=== PATIENT | male | born 1945 | race Caucasian/White ===

== ENCOUNTER 2018-09-13 11:32 | Emergency (ER) | payer OTHER ==
[2018-09-13] MEDS ORDERED: Sodium Chloride 0.9% 10 ML Syringe FLUSH PRN (12:10)
[2018-09-13] MEDS ORDERED: Sodium Chloride 0.9% 1,000 ML IV SCH ×2 (12:15→14:30)
--- NOTE | 2018-09-13 12:45 | EDM.PDOC ---
ED HPI GENERAL MEDICAL PROBLEM - General Chief Complaint: Fever Stated Complaint: running a temp over 100 Time Seen by Provider: 09/13/18 12:08 Source of Information: Reports: Patient, Family, RN Notes Reviewed () - History of Present Illness INITIAL COMMENTS - FREE TEXT/NARRATIVE: 73-year-old male is brought in by this morning for evaluation of fever, chills, possible sepsis. He has been on chemotherapy this past week. He was in the hospital 6 days [place] and just released yesterday after 6 days of IV and oral chemotherapy for what his describes as multiple brain tumors. Dates it is a type of "lymphoma? " He was fine yesterday but started running fever early this morning and did get up as high as 101.8. She did give him a dose of Tylenol after that higher fever about 5 hours ago. He has occasional nonproductive cough. He is mildly short of breath. No chest or abdominal pain. No nausea vomiting or diarrhea. He denies headache at this time. 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 Bilateral Feet Pain Score (Numeric/FACES): 7 - Related Data Allergies Allergy/AdvReac Type Severity Reaction Status Date / Time Benzodiazepines Allergy Confusion Verified 09/13/18 14:12 Home Meds: Home Meds Cholecalciferol (Vitamin D3) [Vitamin D3] 1,000 unit PO DAILY 04/05/18 [History] Multivitamin [Daily Will] 1 tab PO DAILY 04/05/18 [History] atorvaSTATin [Lipitor] 20 mg PO DAILY 04/05/18 [History] metFORMIN HCl [Metformin HCl ER] 750 mg PO DAILY 04/05/18 [History] Apixaban [Eliquis] 5 mg PO BID 09/13/18 [History] Gabapentin [Neurontin] 300 mg PO TID 09/13/18 [History] Procarbazine HCl 200 mg PO DAILY 09/13/18 [History] levETIRAcetam [Levetiracetam] 500 mg PO BID 09/13/18 [History] Past Medical History HEENT History: Reports: Cataract Cardiovascular History: Reports: High Cholesterol Respiratory History: Reports: None Gastrointestinal History: Reports: GERD (occasional heartburn) Genitourinary History: Reports: None Musculoskeletal History: Reports: Arthritis Psychiatric History: Reports: None Endocrine/Metabolic History: Reports: Diabetes, Type II Hematologic History: Reports: None Oncologic (Cancer) History: Reports: Brain, Lymphoma Dermatologic History: Reports: None - Past Surgical History Head Surgeries/Procedures: Reports: None HEENT Surgical History: Reports: Cataract Surgery, Tonsillectomy GI Surgical History: Reports: Colonoscopy Male Surgical History: Reports: None Neurological Surgical History: Reports: None Musculoskeletal Surgical History: Reports: None Dermatological Surgical History: Reports: None Social & Family History - Tobacco Use Smoking Status *Q: Former Smoker Used Tobacco, but Quit: Yes Month/Year Tobacco Last Used: 1989 - Caffeine Use Caffeine Use: Reports: Coffee - Recreational Drug Use Recreational Drug Use: No - Living Situation & Occupation Living situation: Reports: , with Spouse Occupation: Retired ED ROS GENERAL - Review of Systems Review Of Systems: See Below Constitutional: Reports: Fever, Chills. Denies: Diaphoresis HEENT: Denies: Rhinitis, Sinus Problem, Throat Pain Respiratory: Reports: Shortness of Breath (Mild) Cardiovascular: Denies: Chest Pain Endocrine: Reports: Fatigue GI/Abdominal: Denies: Abdominal Pain, Diarrhea, Nausea, Vomiting : Reports: No Symptoms Musculoskeletal: Reports: Other (Generalized achiness) Skin: Reports: Bruising (Lower abdomen) Neurological: Reports: Dizziness, Weakness (Generalized). Denies: Trouble Speaking ED EXAM, SEPSIS - Physical Exam Exam: See Below General Appearance: Alert, No Apparent Distress Eye Exam: Bilateral Eye: PERRL Throat/Mouth: Normal Inspection, Other Head: No: Facial Swelling (Oral mucosa is somewhat dry) Neck: Supple, Full Range of Motion Respiratory/Chest: No Respiratory Distress, Lungs Clear, Normal Breath Sounds. No: Rhonchi, Wheezing Cardiovascular: Tachycardia GI/Abdominal Exam: Soft, Non-Tender, Other (Is bruising the lower mid abdomen). No: Guarding Extremities: Other (Legs are currently wrapped, his states that he did have blisters on his legs from the chemotherapy so they were wrapped prior to leaving the hospital, do for a dressing change today) Neurological: Alert ( by home health), No Motor/Sensory Deficits Skin: Warm, Dry, Pallor EKG INTERPRETATION EKG Date: 09/13/18 Rhythm: Other (Sinus tachycardia) Rate (Beats/Min): 115 P-Wave: Present QRS: Normal ST-T: Normal Course - Vital Signs Last Recorded V/S: Last Vital Signs Temp 101 F H 09/13/18 11:46 Pulse 116 H 09/13/18 11:46 Resp 18 09/13/18 11:46 BP 107/65 09/13/18 11:46 Pulse Ox 94 L 09/13/18 11:46 - Orders/Labs/Meds Orders: Active Orders 24 hr Category Date Time Status EKG 12 Lead [EKG Documentation Completion] [RC] STAT Care 09/13/18 12:10 Active Peripheral IV Care [RC] . DIRECTED Care 09/13/18 12:11 Active CULTURE BLOOD [BC] Stat Lab 09/13/18 12:33 Received CULTURE BLOOD [BC] Stat Lab 09/13/18 12:57 Received Peripheral IV Insertion Adult [OM.PC] Stat Oth 09/13/18 12:10 Ordered Labs: Laboratory Tests 09/13/18 09/13/18 09/13/18 Range/Units 12:23 12:23 12:23 WBC 6.40 (4.23-9.07) K/mm3 RBC 3.08 L (4.63-6.08) M/mm3 Hgb 9.8 L (13.7-17.5) gm/L Hct 30.2 L (40.1-51.0) % MCV 98.1 H (79.0-92.2) fl MCH 31.8 (25.7-32.2) pg MCHC 32.5 (32.2-35.5) g/dl RDW Std Deviation 51.1 H (35.1-43.9) fL Plt Count 195 (163-337) K/mm3 MPV 10.1 (9.4-12.3) fl Neutrophils % (Manual) 94 H (40-60) % Band Neutrophils % 0 (0-10) % Lymphocytes % (Manual) 6 L (20-40) % Atypical Lymphs % 0 % Monocytes % (Manual) 0 L (2-10) % Eosinophils % (Manual) 0 L (0.8-7.0) % Basophils % (Manual) 0 L (0.2-1.2) Toxic Granulation Moderate Platelet Estimate Adequate Poikilocytosis 1+ slight Anisocytosis 2+ RBC Morph Comment Not Reportable Sodium 138 (136-145) mEq/L Potassium 3.7 (3.5-5.1) mEq/L Chloride 101 (98-107) mEq/L Carbon Dioxide 27 (21-32) mEq/L Anion Gap 13.7 (5-15) BUN 31 H (7-18) mg/dL Creatinine 1.3 (0.7-1.3) mg/dL Est Cr Clr Drug Dosing 51.36 mL/min Estimated GFR (MDRD) 54 (>60) mL/min BUN/Creatinine Ratio 23.8 H (14-18) Glucose 183 H (83-115) mg/dL Lactic Acid (0.4-2.0) mmol/L Calcium 8.6 (8.5-10.1) mg/dL Total Bilirubin 1.1 H (0.2-1.0) mg/dL AST 18 (15-37) U/L ALT 38 (16-63) U/L Alkaline Phosphatase 61 (46-116) U/L C-Reactive Protein 17.4 H* (<1.0) mg/dL Total Protein 5.4 L (6.4-8.2) g/dl Albumin 2.3 L (3.4-5.0) g/dl Globulin 3.1 gm/dL Albumin/Globulin Ratio 0.7 L (1-2) Urine Color (Yellow) Urine Appearance (Clear) Urine pH (5.0-8.0) Ur Specific [place] (1.005-1.030) Urine Protein (Negative) Urine Glucose (UA) (Negative) Urine Ketones (Negative) Urine Occult Blood (Negative) Urine Nitrite (Negative) Urine Bilirubin (Negative) Urine Urobilinogen (0.2-1.0) Ur Leukocyte Esterase (Negative) Urine RBC (0-5) /hpf Urine WBC (0-5) /hpf Ur Epithelial Cells (0-5) /hpf Urine Bacteria (FEW) /hpf Urine Mucus (FEW) /hpf 09/13/18 09/13/18 Range/Units 12:23 14:45 WBC (4.23-9.07) K/mm3 RBC (4.63-6.08) M/mm3 Hgb (13.7-17.5) gm/L Hct (40.1-51.0) % MCV (79.0-92.2) fl MCH (25.7-32.2) pg MCHC (32.2-35.5) g/dl RDW Std Deviation (35.1-43.9) fL Plt Count (163-337) K/mm3 MPV (9.4-12.3) fl Neutrophils % (Manual) (40-60) % Band Neutrophils % (0-10) % Lymphocytes % (Manual) (20-40) % Atypical Lymphs % % Monocytes % (Manual) (2-10) % Eosinophils % (Manual) (0.8-7.0) % Basophils % (Manual) (0.2-1.2) Toxic Granulation Platelet Estimate Poikilocytosis Anisocytosis RBC Morph Comment Sodium (136-145) mEq/L Potassium (3.5-5.1) mEq/L Chloride (98-107) mEq/L Carbon Dioxide (21-32) mEq/L Anion Gap (5-15) BUN (7-18) mg/dL Creatinine (0.7-1.3) mg/dL Est Cr Clr Drug Dosing mL/min Estimated GFR (MDRD) (>60) mL/min BUN/Creatinine Ratio (14-18) Glucose (83-115) mg/dL Lactic Acid 2.6 H (0.4-2.0) mmol/L Calcium (8.5-10.1) mg/dL Total Bilirubin (0.2-1.0) mg/dL AST (15-37) U/L ALT (16-63) U/L Alkaline Phosphatase (46-116) U/L C-Reactive Protein (<1.0) mg/dL Total Protein (6.4-8.2) g/dl Albumin (3.4-5.0) g/dl Globulin gm/dL Albumin/Globulin Ratio (1-2) Urine Color Yellow (Yellow) Urine Appearance Clear (Clear) Urine pH 7.0 (5.0-8.0) Ur Specific [place] 1.015 (1.005-1.030) Urine Protein Trace H (Negative) Urine Glucose (UA) Negative (Negative) Urine Ketones Negative (Negative) Urine Occult Blood Negative (Negative) Urine Nitrite Negative (Negative) Urine Bilirubin Negative (Negative) Urine Urobilinogen 1.0 (0.2-1.0) Ur Leukocyte Esterase Negative (Negative) Urine RBC 0-5 (0-5) /hpf Urine WBC 0-5 (0-5) /hpf Ur Epithelial Cells Not seen (0-5) /hpf Urine Bacteria Occasional (FEW) /hpf Urine Mucus Not seen (FEW) /hpf Meds: Medications Discontinued Medications Generic Name Dose Route Start Last Admin Trade Name Freq PRN Reason Stop Dose Admin Sodium Chloride 1,000 mls @ 999 mls/hr 09/13/18 12:15 09/13/18 12:40 Normal Saline IV 999 mls/hr ONETIME MILAD Administration Piperacillin Sod/Tazobactam 100 mls @ 25 mls/hr 09/13/18 12:50 09/13/18 13:03 Sod 4.5 gm/ Sodium Chloride IV 09/13/18 16:49 25 mls/hr ONETIME ONE Administration Sodium Chloride Confirm 09/13/18 14:25 09/13/18 14:32 Normal Saline Administered 09/13/18 14:26 Not Given Dose 1,000 mls @ as directed .ROUTE .STK-MED ONE Sodium Chloride 1,000 mls @ 150 mls/hr 09/13/18 14:30 09/13/18 14:34 Normal Saline IV 150 mls/hr ASDIRECTED MILAD Administration Sodium Chloride 10 ml 09/13/18 12:10 09/13/18 12:41 Saline Flush FLUSH 10 ml ASDIRECTED PRN Administration Keep Vein Open - Re-Assessments/Exams Free Text/Narrative Re-Assessment/Exam: 09/13/18 13:45. WBC 6,400. Lactic acid 2.6. Still awaiting differential and remainder of other labs. We are on full diversion for admissions. Have made arrangements to transfer to [facility]. Blood cultures times 2 were drawn. Have given Zosyn 4.5 g IV. We did also give 1 L of fluid. We'll continue normal saline at 150 per hour. Rest x-ray shows some haziness in possible infiltrate right perihilar area but he also does have findings on prior chest x-ray, awaiting radiologist read. Departure - Departure Time of Disposition: 13:33 Disposition: DC/Tfer to Acute Hospital 02 Condition: Serious Clinical Impression: Febrile illness Pneumonia Qualifiers: Pneumonia type: due to unspecified organism Laterality: right Lung location: lower lobe of lung Qualified Code(s): J18.1 - Lobar pneumonia, unspecified organism - Discharge Information Referrals: Kathy Olivia MD [Primary Care Provider] - Forms: ED Department Discharge - My Orders Last 24 Hours: My Active Orders 09/13/18 12:10 EKG 12 Lead [EKG Documentation Completion] [RC] STAT Peripheral IV Insertion Adult [OM.PC] Stat 09/13/18 12:11 Peripheral IV Care [RC] . DIRECTED 09/13/18 12:33 CULTURE BLOOD [BC] Stat 09/13/18 12:57 CULTURE BLOOD [BC] Stat - Assessment/Plan Last 24 Hours: My Active Orders 09/13/18 12:10 EKG 12 Lead [EKG Documentation Completion] [RC] STAT Peripheral IV Insertion Adult [OM.PC] Stat 09/13/18 12:11 Peripheral IV Care [RC] . DIRECTED 09/13/18 12:33 CULTURE BLOOD [BC] Stat 09/13/18 12:57 CULTURE BLOOD [BC] Stat
[2018-09-13] MEDS ORDERED: Piperacillin/Tazobactam 4.5 GM in Sodium Chloride 0.9% 100 ML IV ONE (12:50)
--- NOTE | 2018-09-13 13:06 | CR ---
Chest: Portable view of the chest was obtained. Comparison: Prior chest x-ray of 07/21/18. Increased density is noted within the right lung base. Findings are suspicious for an area of pneumonia. Lungs otherwise are clear. Heart size appears at the upper limits of normal. Tortuous thoracic aorta is seen. Infusion port is noted on the left side with tip located within the superior vena cava. Impression: 1. Increased density within the right lung base most likely representing pneumonia. 2. Other incidental findings. Diagnostic code #3
[2018-09-13] MEDS ORDERED: Sodium Chloride 0.9% 1,000 ML ONE (14:25)
== END 2018-09-13 15:01 ==
LOC: JD.ED 11:32
DX: J18.1 Lobar pneumonia, unspecified organism (principal); E11.9 Type 2 diabetes mellitus without complications; K21.9 Gastro-esophageal reflux disease without esophagitis; E78.00 Pure hypercholesterolemia, unspecified; Z79.899 Other long term (current) drug therapy; Z87.891 Personal history of nicotine dependence; Z79.84 Long term (current) use of oral hypoglycemic drugs; Z88.8 Allergy status to other drugs, medicaments and biological substances
CPT/HCPCS: 36415; 71045; 80053; 81001; 83605; 85007; 85027; 86140; 87040; 87804; 93005; 96365; 96366; 99285; J2543; J7030; J7040; 93010

== ENCOUNTER 2019-09-09 16:49 | Inpatient (IN) | payer MEDICARE, OTHER ==
--- NOTE | 2019-09-09 17:25 | EDM.PDOC ---
ED HPI GENERAL MEDICAL PROBLEM - General Chief Complaint: Cardiovascular Problem Stated Complaint: FLUID IN LUNGS SENT BY [facility] Time Seen by Provider: 09/09/19 16:59 Source of Information: Reports: Patient, [facility] V[facility] NP), RN Notes Reviewed History Limitations: Reports: No Limitations - History of Present Illness INITIAL COMMENTS - FREE TEXT/NARRATIVE: Patient is a 74-year-old male who presents to the ED for the evaluation of ongoing shortness of breath/fluid in his lungs. The patient was evaluated by his primary care provider at the [facility], Char Viera over the phone, and was told to come to the ER for further management. Patient did have a chest x- ray done on August 30, which showed some pleural effusions, and had a chest x- ray done at [facility] again today which again demonstrated pleural effusions, but these were not worse from 08/30. Patient notes that he is having increasing difficulty breathing, states that the shortness of breath is much worse when he lays flat he has been having to use his recliner to sleep. Patient notes that he does have a semi-productive cough, he states at times he gets lots of moody-colored sputum up, other times he does not get much up at all. He recounts only a history of hayfever or allergies, but no COPD or asthma. Patient states he does have a history of Hodgkin's lymphoma, but this is currently in remission. His brain MRI in July was good. His oncologist is Dr. Vasquez from [facility]. Patient states that he does not have any fevers or chills, no nausea/vomiting/diarrhea, no chest pain per se however he does say when he sleeps at night it is bothersome/mildly painful to lay on his right side at the lower end of his rib cage. Patient denies any other cardiac issues. States that he takes metformin and atorvastatin, and Keppra on a regular basis with some other multivitamins. He is not on any blood thinners. - Related Data Allergies Allergy/AdvReac Type Severity Reaction Status Date / Time Benzodiazepines Allergy Confusion Verified 09/13/18 14:12 Home Meds: Home Meds Cholecalciferol (Vitamin D3) [Vitamin D3] 1,000 unit PO DAILY 04/05/18 [History] Multivitamin [Daily Will] 1 tab PO DAILY 04/05/18 [History] atorvaSTATin [Lipitor] 20 mg PO DAILY 04/05/18 [History] metFORMIN HCl [Metformin HCl ER] 750 mg PO DAILY 04/05/18 [History] levETIRAcetam [Levetiracetam] 500 mg PO BID 09/13/18 [History] Past Medical History HEENT History: Reports: Cataract Cardiovascular History: Reports: High Cholesterol Gastrointestinal History: Reports: GERD Musculoskeletal History: Reports: Arthritis Neurological History: Reports: Other (See Below) Other Neuro History: brain tumors Endocrine/Metabolic History: Reports: Diabetes, Type II Oncologic (Cancer) History: Reports: Brain, Lymphoma (hodgkin's lymphoma, in remission with good brain MRI 07/2019) - Past Surgical History HEENT Surgical History: Reports: Cataract Surgery, Tonsillectomy GI Surgical History: Reports: Colonoscopy Social & Family History - Tobacco Use Smoking Status *Q: Former Smoker Used Tobacco, but Quit: Yes Month/Year Tobacco Last Used: 35 - Caffeine Use Caffeine Use: Reports: Coffee - Recreational Drug Use Recreational Drug Use: No - Living Situation & Occupation Living situation: Reports: , with Spouse Occupation: Retired ED ROS GENERAL - Review of Systems Review Of Systems: See Below Constitutional: Denies: Fever, Chills Respiratory: Reports: Shortness of Breath (increasing), Cough, Sputum (at times , see HPI) Cardiovascular: Reports: Blood Pressure Problem (has been having some lower blood pressure readings, notes 106/64 last week, second BP here was 92/58) , Edema (bilateral lower extremities), Orthopnea. Denies: Chest Pain GI/Abdominal: Denies: Abdominal Pain, Nausea, Vomiting ED EXAM, GENERAL - Physical Exam Exam: See Below Exam Limited By: Other General Appearance: Alert, WD/WN Eye Exam: Bilateral Eye: EOMI, Normal Inspection, PERRL Ears: Normal External Exam Nose: Normal Inspection Throat/Mouth: Normal Inspection, Normal Lips, Normal Teeth, Normal Gums, Normal Oropharynx, Normal Voice, No Airway Compromise Head: Atraumatic, Normocephalic Neck: Normal Inspection Respiratory/Chest: No Respiratory Distress (pt does seem to be taking heavier breaths than normal but not actively in distress), No Accessory Muscle Use, Chest Non-Tender, Wheezing (mild wheezing, end expiratory on R Lung) Cardiovascular: Normal Peripheral Pulses, Tachycardia (but regular), Other (3+ pitting edema to bilateral extremities) Peripheral Pulses: 2+: Radial (L), Radial (R) GI/Abdominal: Normal Bowel Sounds, Soft, Non-Tender, No Distention, No Mass Extremities: Normal Inspection, Normal Capillary Refill Neurological: Alert, Oriented, Normal Cognition, No Motor/Sensory Deficits Psychiatric: Normal Affect, Normal Mood Skin Exam: Warm, Dry, Intact, Normal Color, No Rash EKG INTERPRETATION EKG Date: 09/09/19 Time: 17:35 Rhythm: NSR (sinus tachy) Rate (Beats/Min): 113 [place]: RAD-Right [place] Deviation (borderline) P-Wave: Present QRS: Normal ST-T: Normal QT: Prolonged (borderline) EKG Interpretation Comments: No acute ischemic change noted, reviewed by myself and Dr. Viera. Course - Vital Signs Last Recorded V/S: Last Vital Signs Temp 100.0 F 09/09/19 21:03 Pulse 115 H 09/09/19 21:03 Resp 28 H 09/09/19 21:03 BP 106/62 09/09/19 21:03 Pulse Ox 93 L 09/09/19 21:03 - Orders/Labs/Meds Orders: Active Orders 24 hr Category Date Time Status Admission Status [Patient Status] [ADT] Routine ADT 09/09/19 20:44 Ordered EKG Documentation Completion [RC] STAT Care 09/09/19 17:18 Active Peripheral IV Care [RC] . DIRECTED Care 09/09/19 17:18 Active Chest 2V [CR] Stat Exams 09/09/19 17:18 Taken CULTURE BLOOD [BC] Stat Lab 09/09/19 19:29 Received CULTURE BLOOD [BC] Stat Lab 09/09/19 19:35 Received REFLEX LACTIC ACID YES OR NO [CHEM] Routine Lab 09/09/19 20:33 Received Sodium Chloride 0.9% [Normal Saline] 1,000 ml Med 09/09/19 17:26 Active IV ONETIME Sodium Chloride 0.9% [Normal Saline] 1,000 ml Med 09/09/19 20:45 Active IV ONETIME Sodium Chloride 0.9% [Saline Flush] Med 09/09/19 17:18 Active 10 ml FLUSH ASDIRECTED PRN Blood Culture x2 Reflex Set [OM.PC] Stat Oth 09/09/19 19:11 Ordered Peripheral IV Insertion Adult [OM.PC] Stat Oth 09/09/19 17:18 Ordered Medication Orders Sodium Chloride (Normal Saline) 1,000 mls @ 100 mls/hr IV ONETIME ONE Stop: 09/10/19 03:25 Last Admin: 09/09/19 18:24 Dose: 100 mls/hr Sodium Chloride (Normal Saline) 1,000 mls @ 100 mls/hr IV ONETIME ONE Stop: 09/10/19 06:44 Last Admin: 09/09/19 20:51 Dose: 100 mls/hr Sodium Chloride (Saline Flush) 10 ml FLUSH ASDIRECTED PRN PRN Reason: Keep Vein Open Last Admin: 09/09/19 19:44 Dose: 10 ml Admin: 09/09/19 17:45 Dose: 10 ml Labs: Laboratory Tests 09/09/19 09/09/19 09/09/19 Range/Units 17:45 17:45 17:45 WBC 12.55 H (4.23-9.07) K/mm3 RBC 4.70 (4.63-6.08) M/mm3 Hgb 11.2 L (13.7-17.5) gm/dl Hct 37.3 L (40.1-51.0) % MCV 79.4 D (79.0-92.2) fl MCH 23.8 L (25.7-32.2) pg MCHC 30.0 L (32.2-35.5) g/dl RDW Std Deviation 50.3 H (35.1-43.9) fL Plt Count 338 H D (163-337) K/mm3 MPV 9.3 L (9.4-12.3) fl Neutrophils % (Manual) 74 H (40-60) % Band Neutrophils % 0 (0-10) % Lymphocytes % (Manual) 8 L (20-40) % Atypical Lymphs % 0 % Monocytes % (Manual) 9 (2-10) % Eosinophils % (Manual) 6 (0.8-7.0) % Basophils % (Manual) 3 H (0.2-1.2) Platelet Estimate Adequate Hypochromasia Few Poikilocytosis 1+ slight Anisocytosis 1+ slight Ovalocytes 1+ slight [place] Cells Few RBC Morph Comment Not Reportable PT 11.6 (9.7-12.0) SECONDS INR 1.07 APTT 29 (22-31) SECONDS Sodium 144 (136-145) mEq/L Potassium 4.2 (3.5-5.1) mEq/L Chloride 106 (98-107) mEq/L Carbon Dioxide 27 (21-32) mEq/L Anion Gap 15.2 H (5-15) BUN 12 (7-18) mg/dL Creatinine 0.8 (0.7-1.3) mg/dL Est Cr Clr Drug Dosing 79.56 mL/min Estimated GFR (MDRD) > 60 (>60) mL/min BUN/Creatinine Ratio 15.0 (14-18) Glucose 114 (83-115) mg/dL Lactic Acid (0.4-2.0) mmol/L Calcium 8.8 (8.5-10.1) mg/dL Magnesium 1.9 (1.8-2.4) mg/dl Total Bilirubin 0.4 (0.2-1.0) mg/dL AST 14 L (15-37) U/L ALT 15 L (16-63) U/L Alkaline Phosphatase 155 H (46-116) U/L Troponin I < 0.017 (0.00-0.056) ng/mL C-Reactive Protein (<1.0) mg/dL NT-Pro-B Natriuret Pep (0-125) pg/mL Total Protein 5.7 L (6.4-8.2) g/dl Albumin 2.3 L (3.4-5.0) g/dl Globulin 3.4 gm/dL Albumin/Globulin Ratio 0.7 L (1-2) 09/09/19 09/09/19 09/09/19 Range/Units 17:45 17:45 19:29 WBC (4.23-9.07) K/mm3 RBC (4.63-6.08) M/mm3 Hgb (13.7-17.5) gm/dl Hct (40.1-51.0) % MCV (79.0-92.2) fl MCH (25.7-32.2) pg MCHC (32.2-35.5) g/dl RDW Std Deviation (35.1-43.9) fL Plt Count (163-337) K/mm3 MPV (9.4-12.3) fl Neutrophils % (Manual) (40-60) % Band Neutrophils % (0-10) % Lymphocytes % (Manual) (20-40) % Atypical Lymphs % % Monocytes % (Manual) (2-10) % Eosinophils % (Manual) (0.8-7.0) % Basophils % (Manual) (0.2-1.2) Platelet Estimate Hypochromasia Poikilocytosis Anisocytosis Ovalocytes [place] Cells RBC Morph Comment PT (9.7-12.0) SECONDS INR APTT (22-31) SECONDS Sodium (136-145) mEq/L Potassium (3.5-5.1) mEq/L Chloride (98-107) mEq/L Carbon Dioxide (21-32) mEq/L Anion Gap (5-15) BUN (7-18) mg/dL Creatinine (0.7-1.3) mg/dL Est Cr Clr Drug Dosing mL/min Estimated GFR (MDRD) (>60) mL/min BUN/Creatinine Ratio (14-18) Glucose (83-115) mg/dL Lactic Acid 2.2 H* (0.4-2.0) mmol/L Calcium (8.5-10.1) mg/dL Magnesium (1.8-2.4) mg/dl Total Bilirubin (0.2-1.0) mg/dL AST (15-37) U/L ALT (16-63) U/L Alkaline Phosphatase (46-116) U/L Troponin I (0.00-0.056) ng/mL C-Reactive Protein 19.8 H* (<1.0) mg/dL NT-Pro-B Natriuret Pep 546 H (0-125) pg/mL Total Protein (6.4-8.2) g/dl Albumin (3.4-5.0) g/dl Globulin gm/dL Albumin/Globulin Ratio (1-2) Meds: Medications Generic Name Dose Route Start Last Admin Trade Name Freq PRN Reason Stop Dose Admin Sodium Chloride 1,000 mls @ 100 mls/hr 09/09/19 17:26 09/09/19 20:50 Normal Saline IV 09/10/19 03:25 Infused ONETIME ONE Infusion Sodium Chloride 1,000 mls @ 100 mls/hr 09/09/19 20:45 09/09/19 20:51 Normal Saline IV 09/10/19 06:44 100 mls/hr ONETIME ONE Administration Sodium Chloride 10 ml 09/09/19 17:18 09/09/19 19:44 Saline Flush FLUSH 10 ml ASDIRECTED PRN Administration Keep Vein Open Discontinued Medications Generic Name Dose Route Start Last Admin Trade Name Joel PRN Reason Stop Dose Admin Acetaminophen 650 mg 09/09/19 20:40 09/09/19 20:49 Tylenol PO 09/09/19 20:41 650 mg NOW ONE Administration Azithromycin 500 mg 09/09/19 20:28 09/09/19 20:46 Zithromax PO 09/09/19 20:29 500 mg ONETIME ONE Administration Ceftriaxone Sodium 2 gm/ 100 mls @ 200 mls/hr 09/09/19 20:27 09/09/19 20:47 Sodium Chloride IV 09/09/19 20:56 200 mls/hr ONETIME ONE Administration Iopamidol 100 ml 09/09/19 19:27 09/09/19 19:44 Isovue-300 (61%) IVPUSH 09/09/19 19:28 100 ml ONETIME ONE Administration - Re-Assessments/Exams Free Text/Narrative Re-Assessment/Exam: 09/09/19 17:31 Patient presents to the ED for the evaluation of his ongoing shortness of breath. We will repeat the chest x-ray today as we do not have access to [facility] records at this time. We will also get EKG, and other baseline labs for evaluation, will include a BNP as well. We will have an IV placed, and IV fluids at 100 right now for patient's low systolic blood pressure. 09/09/19 20:11 I did increase the fluids as a bolus, as the patient blood pressure has persistently stayed in the high 90s to low 100s systolically. O2 sats are staying in the low 90s on room air, 92 to 93%. Patient's tachycardia is improving at this time. Chest x-ray was suggestive of a right middle lobe infiltrate, and a parapneumonic effusion. This was reviewed by myself and Dr. Ferrari official radiology read is pending on the chest x-ray. Dr. Ferrari did recommend doing a chest CT with contrast for further evaluation of the area we did go ahead with this at this time after informed decision making with the patient. This does also demonstrate the pleural effusion, and a right middle lobe infiltrate, however official radiology read is pending on the CT as well. This is only speculative. Patient's blood pressure has increased to 109/60 after 650 mils of fluid have been given at this time. I do believe that the patient would likely benefit from at least observation admission, with some IV antibiotics. But I do not think it would be clinically indicated for a thoracentesis at this time, Dr. Ferrari does agree as well. I did also order lactic acid, and blood cultures x2. These are still pending. 09/09/19 20:41 Was made notified by nursing, that the patient did rule in for sepsis criteria at 20:33 due to the lactic acid coming back at 2.2. Patient did receive 1000 mils of fluid at this time, and his blood pressure did respond nicely, he is now in the low to mid 100s systolically. I did call Dr. Jimenez for hospitalization, and he does accept the patient at this time for pneumonia. Dr. Jimenez does request that the patient does receive the 30 mils per kilogram bolus of fluids, this would equal 2340 mils of fluid. I did order a second liter of fluids to be given as well. Departure - Departure Time of Disposition: 20:42 Disposition: Admitted As Inpatient 67 Condition: Fair Clinical Impression: Pneumonia Qualifiers: Pneumonia type: due to unspecified organism Laterality: right Lung location: middle lobe of lung Qualified Code(s): J18.9 - Pneumonia, unspecified organism Referrals: Char Viera, [employer] [Primary Care Provider] - Forms: ED Department Discharge Sepsis Event Note - Evaluation Sepsis Screening Result: No Definite Risk - Focused Exam Vital Signs: Vital Signs Temp Pulse Resp BP Pulse Ox 09/09/19 21:03 100.0 F 115 H 28 H 106/62 93 L 09/09/19 20:00 110 H 24 H 109/60 94 L 09/09/19 19:22 116 H 20 107/69 97 09/09/19 17:03 98.4 F 110 H 20 83/49 L 94 L Date Exam was Performed: 09/09/19 Time Exam was Performed: 21:14 - My Orders Last 24 Hours: My Active Orders 09/09/19 17:18 EKG Documentation Completion [RC] STAT Peripheral IV Care [RC] . DIRECTED Chest 2V [CR] Stat Sodium Chloride 0.9% [Saline Flush] 10 ml FLUSH ASDIRECTED PRN Peripheral IV Insertion Adult [OM.PC] Stat 09/09/19 17:26 Sodium Chloride 0.9% [Normal Saline] 1,000 ml IV ONETIME 09/09/19 19:11 Blood Culture x2 Reflex Set [OM.PC] Stat 09/09/19 19:29 CULTURE BLOOD [BC] Stat 09/09/19 19:35 CULTURE BLOOD [BC] Stat 09/09/19 20:33 REFLEX LACTIC ACID YES OR NO [CHEM] Routine 09/09/19 20:44 Admission Status [Patient Status] [ADT] Routine 09/09/19 20:45 Sodium Chloride 0.9% [Normal Saline] 1,000 ml IV ONETIME - Assessment/Plan Last 24 Hours: My Active Orders 09/09/19 17:18 EKG Documentation Completion [RC] STAT Peripheral IV Care [RC] . DIRECTED Chest 2V [CR] Stat Sodium Chloride 0.9% [Saline Flush] 10 ml FLUSH ASDIRECTED PRN Peripheral IV Insertion Adult [OM.PC] Stat 09/09/19 17:26 Sodium Chloride 0.9% [Normal Saline] 1,000 ml IV ONETIME 09/09/19 19:11 Blood Culture x2 Reflex Set [OM.PC] Stat 09/09/19 19:29 CULTURE BLOOD [BC] Stat 09/09/19 19:35 CULTURE BLOOD [BC] Stat 09/09/19 20:33 REFLEX LACTIC ACID YES OR NO [CHEM] Routine 09/09/19 20:44 Admission Status [Patient Status] [ADT] Routine 09/09/19 20:45 Sodium Chloride 0.9% [Normal Saline] 1,000 ml IV ONETIME
[2019-09-09] MEDS: Sodium Chloride 0.9% 10 ML Syringe FLUSH PRN ×3 (17:45→23:35)
[2019-09-09] MEDS: Sodium Chloride 0.9% 1,000 ML IV ONE ×2 (18:24→23:14)
[2019-09-09] MEDS ORDERED: Iopamidol 612 MG/ML 100 ML Bottle IVPUSH ONE (19:27)
--- NOTE | 2019-09-09 20:16 | CT ---
CT chest Technique: Multiple axial sections of the chest are obtained. Intravenous contrast was utilized. Comparison: Prior chest x-ray performed earlier on the same day (6:05 PM). Findings: Small pericardial effusion is seen. Small right sided pleural effusion is noted. Compressive atelectasis adjacent to the pleural effusion is seen. Areas of consolidation are noted from the right hilar region extending into the right upper lung. There is adenopathy being seen within the chest. Largest lymph node located within the precarinal region measuring 3.4 cm. Aorta shows atherosclerotic change without aneurysm. Left lung shows no acute parenchymal process. Numerous cysts are seen within the liver. Degenerative change is scattered throughout the spine. Impression: 1. Small pericardial effusion. 2. Small right sided pleural effusion. 3. Consolidation within the right upper lung extending from the right hilar region. Findings most likely representing pneumonia. 4. Adenopathy within the mediastinum possibly relating to reactive adenopathy from the right-sided pneumonia. Follow-up chest CT will be needed several months after the patient's clinical condition improves to make sure this does not represent other etiology. Diagnostic code #3 Study was dictated in MDT
[2019-09-09] MEDS ORDERED: cefTRIAXone 2 GM in Sodium Chloride 0.9% 100 ML IV ONE (20:27)
[2019-09-09] MEDS ORDERED: Azithromycin 250 MG Tab PO ONE (20:28)
[2019-09-09] MEDS ORDERED: Acetaminophen 325 MG Tab PO ONE (20:40)
[2019-09-09] MEDS ORDERED: Sodium Chloride 0.9% 1,000 ML IV ONE (20:45)
--- NOTE | 2019-09-09 22:49 | PCM.HP.2 ---
H&P History of Present Illness - General Date of Service: 09/09/19 Admit Problem/Dx: Admission Diagnosis/Problem Admission Diagnosis/Problem Pneumonia - History of Present Illness Initial Comments - Free Text/Narative: 74-year-old male presents to the emergency department after being referred by the CT clinic with shortness of breath, and productive sputum of moody phlegm. Patient states that over the last 2 weeks he has had increasing difficulty with breathing. He states it has been difficult to sleep because he feels like he has a heavy chest. Last week he was seen at the CT clinic and a chest x-ray was done at [facility] which showed a pleural effusion. Repeat chest x-ray done today showed worsening of that pleural effusion and he was sent to the emergency department for further evaluation and treatment. Patient states that on August 30 he did take azithromycin 500 mg 1 time because initially it was felt to be a pneumonia. When the provider received the chest x-ray results it appears that only a pleural effusion was noted and antibiotics were stopped. Patient does have a [id number] history, but stopped smoking in the 1980s. He denies any fever but does complain of some chills. He has had decreased appetite but has been drinking a protein drink. Patient was diagnosed with Hodgkin's lymphoma with brain lesions July 21, 2018. Patient underwent a brain biopsy, radiation, and chemotherapy. He has had significant lower extremity edema since chemotherapy. He states that his lower extremity edema is better. In the emergency room patient had a CT scan of the chest which showed: 1. Small pericardial effusion. 2. Small right sided pleural effusion. 3. Consolidation within right upper lung extending from the right hilar region. Findings most likely representing pneumonia. 4. Adenopathy within the mediastinum possibly relating to reactive adenopathy from the right sided pneumonia. Follow-up chest CT will be needed several months after the patient's clinical condition improves. Bilateral Chest Pain Score (Numeric/FACES): 5 - Related Data Allergies/Adverse Reactions: Allergies Allergy/AdvReac Type Severity Reaction Status Date / Time Benzodiazepines Allergy Confusion Verified 09/09/19 22:23 Home Medications: Home Meds Cholecalciferol (Vitamin D3) [Vitamin D3] 1,000 unit PO DAILY 04/05/18 [History] Multivitamin [Daily Will] 1 tab PO DAILY 04/05/18 [History] atorvaSTATin [Lipitor] 20 mg PO DAILY 04/05/18 [History] metFORMIN HCl [Metformin HCl ER] 750 mg PO DAILY 04/05/18 [History] levETIRAcetam [Levetiracetam] 500 mg PO Q48H 09/13/18 [History] Past Medical History HEENT History: Reports: Cataract, Other (See Below) Other HEENT History: wears reading glasses but does not have any here with him Cardiovascular History: Reports: High Cholesterol Respiratory History: Reports: Other (See Below) Other Respiratory History: seasonal allergies Gastrointestinal History: Reports: GERD Genitourinary History: Reports: None Musculoskeletal History: Reports: Arthritis Neurological History: Reports: Other (See Below) Other Neuro History: brain tumors-Hodgkins Lymphoma 2018. Last chemo was November and radiation january Psychiatric History: Reports: None Endocrine/Metabolic History: Reports: Diabetes, Type II, Other (See Below) Other Endocrine/Metabolic History: states he is pre-diabetic on metformin and does not check blood sugars at home. Hematologic History: Reports: None Oncologic (Cancer) History: Reports: Brain, Lymphoma Dermatologic History: Reports: None - Infectious Disease History Infectious Disease History: Reports: Chicken Pox, Influenza, Measles, Mumps - Past Surgical History Head Surgeries/Procedures: Reports: None HEENT Surgical History: Reports: Cataract Surgery, Tonsillectomy GI Surgical History: Reports: Colonoscopy Male Surgical History: Reports: Circumcision Endocrine Surgical History: Reports: None Neurological Surgical History: Reports: None Musculoskeletal Surgical History: Reports: None Oncologic Surgical History: Reports: None Dermatological Surgical History: Reports: None Social & Family History - Family History Family Medical History: Noncontributory - Tobacco Use Smoking Status *Q: Former Smoker Used Tobacco, but Quit: Yes Month/Year Tobacco Last Used: 35 - Caffeine Use Caffeine Use: Reports: Coffee - Recreational Drug Use Recreational Drug Use: No - Living Situation & Occupation Living situation: Reports: , with Spouse Occupation: Retired H&P Review of Systems - Review of Systems: Review Of Systems: Comprehensive ROS is negative, except as noted in HPI. Exam - Exam Exam: See Below - Vital Signs Vital Signs: Last Vital Signs Temp 99.6 F 09/09/19 21:41 Pulse 115 H 09/09/19 21:41 Resp 28 H 09/09/19 21:41 BP 100/65 09/09/19 21:41 Pulse Ox 93 L 09/09/19 21:41 Weight: 172 lb - Exam Quality Assessment: No: Supplemental Oxygen General: Alert, Oriented, 4 HEENT: Conjunctiva Clear, EACs Clear, Mucosa Moist & [place] Neck: Supple, Trachea Midline, 2 Lungs: Rhonchi (Right lower lobe). No: Normal Respiratory Effort (Increased respiratory rate with use of accessory muscles) Cardiovascular: Regular Rhythm, Tachycardia GI/Abdominal Exam: Normal Bowel Sounds, Soft, Non-Tender, No Organomegaly, No Distention, No Abnormal Bruit, No Mass Extremities: Normal Inspection, Normal Range of Motion, Normal Capillary Refill , Pedal Edema (2+) Peripheral Pulses: 2+: Posterior Tibial (L), Posterior Tibial (R), Dorsalis Pedis (L), Dorsalis Pedis (R) Skin: Warm, Dry, Intact Neuro Extensive - Mental Status: Alert, Oriented x3, Normal Mood/Affect, Normal Cognition Psychiatric: Alert, Normal Affect, Normal Mood - Patient Data Lab Results Last 24 hrs: Laboratory Results - last 24 hr 09/09/19 09/09/19 09/09/19 Range/Units 17:45 17:45 17:45 WBC 12.55 H (4.23-9.07) K/mm3 RBC 4.70 (4.63-6.08) M/mm3 Hgb 11.2 L (13.7-17.5) gm/dl Hct 37.3 L (40.1-51.0) % MCV 79.4 D (79.0-92.2) fl MCH 23.8 L (25.7-32.2) pg MCHC 30.0 L (32.2-35.5) g/dl RDW Std Deviation 50.3 H (35.1-43.9) fL Plt Count 338 H D (163-337) K/mm3 MPV 9.3 L (9.4-12.3) fl Neutrophils % (Manual) 74 H (40-60) % Band Neutrophils % 0 (0-10) % Lymphocytes % (Manual) 8 L (20-40) % Atypical Lymphs % 0 % Monocytes % (Manual) 9 (2-10) % Eosinophils % (Manual) 6 (0.8-7.0) % Basophils % (Manual) 3 H (0.2-1.2) Platelet Estimate Adequate Hypochromasia Few Poikilocytosis 1+ slight Anisocytosis 1+ slight Ovalocytes 1+ slight [place] Cells Few RBC Morph Comment Not Reportable PT 11.6 (9.7-12.0) SECONDS INR 1.07 APTT 29 (22-31) SECONDS Sodium 144 (136-145) mEq/L Potassium 4.2 (3.5-5.1) mEq/L Chloride 106 (98-107) mEq/L Carbon Dioxide 27 (21-32) mEq/L Anion Gap 15.2 H (5-15) BUN 12 (7-18) mg/dL Creatinine 0.8 (0.7-1.3) mg/dL Est Cr Clr Drug Dosing 79.56 mL/min Estimated GFR (MDRD) > 60 (>60) mL/min BUN/Creatinine Ratio 15.0 (14-18) Glucose 114 (83-115) mg/dL Lactic Acid (0.4-2.0) mmol/L Calcium 8.8 (8.5-10.1) mg/dL Magnesium 1.9 (1.8-2.4) mg/dl Total Bilirubin 0.4 (0.2-1.0) mg/dL AST 14 L (15-37) U/L ALT 15 L (16-63) U/L Alkaline Phosphatase 155 H (46-116) U/L Troponin I < 0.017 (0.00-0.056) ng/mL C-Reactive Protein (<1.0) mg/dL NT-Pro-B Natriuret Pep (0-125) pg/mL Total Protein 5.7 L (6.4-8.2) g/dl Albumin 2.3 L (3.4-5.0) g/dl Globulin 3.4 gm/dL Albumin/Globulin Ratio 0.7 L (1-2) 09/09/19 09/09/19 09/09/19 Range/Units 17:45 17:45 19:29 WBC (4.23-9.07) K/mm3 RBC (4.63-6.08) M/mm3 Hgb (13.7-17.5) gm/dl Hct (40.1-51.0) % MCV (79.0-92.2) fl MCH (25.7-32.2) pg MCHC (32.2-35.5) g/dl RDW Std Deviation (35.1-43.9) fL Plt Count (163-337) K/mm3 MPV (9.4-12.3) fl Neutrophils % (Manual) (40-60) % Band Neutrophils % (0-10) % Lymphocytes % (Manual) (20-40) % Atypical Lymphs % % Monocytes % (Manual) (2-10) % Eosinophils % (Manual) (0.8-7.0) % Basophils % (Manual) (0.2-1.2) Platelet Estimate Hypochromasia Poikilocytosis Anisocytosis Ovalocytes [place] Cells RBC Morph Comment PT (9.7-12.0) SECONDS INR APTT (22-31) SECONDS Sodium (136-145) mEq/L Potassium (3.5-5.1) mEq/L Chloride (98-107) mEq/L Carbon Dioxide (21-32) mEq/L Anion Gap (5-15) BUN (7-18) mg/dL Creatinine (0.7-1.3) mg/dL Est Cr Clr Drug Dosing mL/min Estimated GFR (MDRD) (>60) mL/min BUN/Creatinine Ratio (14-18) Glucose (83-115) mg/dL Lactic Acid 2.2 H* (0.4-2.0) mmol/L Calcium (8.5-10.1) mg/dL Magnesium (1.8-2.4) mg/dl Total Bilirubin (0.2-1.0) mg/dL AST (15-37) U/L ALT (16-63) U/L Alkaline Phosphatase (46-116) U/L Troponin I (0.00-0.056) ng/mL C-Reactive Protein 19.8 H* (<1.0) mg/dL NT-Pro-B Natriuret Pep 546 H (0-125) pg/mL Total Protein (6.4-8.2) g/dl Albumin (3.4-5.0) g/dl Globulin gm/dL Albumin/Globulin Ratio (1-2) Result Diagrams: 09/10/19 05:58 09/10/19 05:58 Sepsis Event Note - Evaluation Sepsis Screening Result: No Definite Risk - Focused Exam Vital Signs: Vital Signs Temp Pulse Resp BP Pulse Ox 09/09/19 21:41 99.6 F 115 H 28 H 100/65 93 L 09/09/19 21:03 100.0 F 115 H 28 H 106/62 93 L 09/09/19 20:00 110 H 24 H 109/60 94 L 09/09/19 19:22 116 H 20 107/69 97 09/09/19 17:03 98.4 F 110 H 20 83/49 L 94 L Date Exam was Performed: 09/10/19 Time Exam was Performed: 13:34 Problem List Initiated/Reviewed/Updated: Yes Orders Last 24hrs: Active Orders 24 hr Category Date Time Status Admission Status [Patient Status] [ADT] Routine ADT 09/09/19 20:44 Active Oxygen Therapy [RC] PRN Care 09/09/19 22:12 Active Peripheral IV Care [RC] . DIRECTED Care 09/09/19 17:18 Active RT Aerosol Therapy [RC] ASDIRECTED Care 09/09/19 22:17 Active Up With Assistance [RC] ASDIRECTED Care 09/09/19 22:12 Active VTE/DVT Education [RC] PER UNIT ROUTINE Care 09/09/19 22:12 Active Vital Signs [RC] Q4H Care 09/09/19 22:12 Active Heart Healthy Diet [DIET] Diet 09/10/19 Breakfast Active Chest 2V [CR] Stat Exams 09/09/19 17:18 Taken C-REACTIVE PROTEIN [CHEM] AM Lab 09/10/19 05:11 Ordered C-REACTIVE PROTEIN [CHEM] AM Lab 09/11/19 05:11 Ordered C-REACTIVE PROTEIN [CHEM] AM Lab 09/12/19 05:11 Ordered CBC WITH AUTO DIFF [HEME] AM Lab 09/10/19 05:11 Ordered CBC WITH AUTO DIFF [HEME] AM Lab 09/11/19 05:11 Ordered CBC WITH AUTO DIFF [HEME] AM Lab 09/12/19 05:11 Ordered COMPREHENSIVE METABOLIC PN,CMP [CHEM] AM Lab 09/10/19 05:11 Ordered COMPREHENSIVE METABOLIC PN,CMP [CHEM] AM Lab 09/11/19 05:11 Ordered COMPREHENSIVE METABOLIC PN,CMP [CHEM] AM Lab 09/12/19 05:11 Ordered CULTURE BLOOD [BC] Stat Lab 09/09/19 19:29 Received CULTURE BLOOD [BC] Stat Lab 09/09/19 19:35 Received LACTIC ACID [CHEM] Routine Lab 09/09/19 22:33 Ordered MAGNESIUM [CHEM] AM Lab 09/10/19 05:11 Ordered MAGNESIUM [CHEM] AM Lab 09/11/19 05:11 Ordered MAGNESIUM [CHEM] AM Lab 09/12/19 05:11 Ordered Acetaminophen [Tylenol] Med 09/09/19 22:12 Active 650 mg PO Q4H PRN Albuterol/Ipratropium [DuoNeb 3.0-0.5 MG/3 ML] Med 09/09/19 22:16 Active 3 ml NEB Q4HRRT PRN Azithromycin [Zithromax] Med 09/10/19 20:00 Active 250 mg PO Q24H Enoxaparin [Lovenox] Med 09/10/19 09:00 Active 40 mg SUBCUT DAILY Simvastatin [Zocor] Med 09/10/19 21:00 Active 20 mg PO BEDTIME Sodium Chloride 0.9% [Normal Saline] 1,000 ml Med 09/09/19 17:26 Active IV ONETIME Sodium Chloride 0.9% [Saline Flush] Med 09/09/19 17:18 Active 10 ml FLUSH ASDIRECTED PRN cefTRIAXone [Rocephin] 1 gm Med 09/10/19 20:00 Active Sodium Chloride 0.9% [Normal Saline] 100 ml IV Q24H levETIRAcetam Med 09/11/19 09:00 Pending 500 mg PO ASDIRECTED Blood Culture x2 Reflex Set [OM.PC] Stat Oth 09/09/19 19:11 Ordered Peripheral IV Insertion Adult [OM.PC] Stat Oth 09/09/19 17:18 Ordered Resuscitation Status Routine Resus Stat 09/09/19 22:12 Ordered Medication Orders Acetaminophen (Tylenol) 650 mg PO Q4H PRN PRN Reason: Pain (Mild 1-3)/fever Albuterol/Ipratropium (Duoneb 3.0-0.5 Mg/3 Ml) 3 ml NEB Q4HRRT PRN PRN Reason: Shortness of Breath Azithromycin (Zithromax) 250 mg PO Q24H MILAD Enoxaparin Sodium (Lovenox) 40 mg SUBCUT DAILY MILAD Sodium Chloride (Normal Saline) 1,000 mls @ 100 mls/hr IV ONETIME ONE Stop: 09/10/19 03:25 Last Infusion: 03/20/20 20:50 Dose: 100 mls/hr Admin: 09/09/19 18:24 Dose: 100 mls/hr Ceftriaxone Sodium 1 gm/ (Sodium Chloride) 100 mls @ 200 mls/hr IV Q24H MILAD Non-Formulary Medication (Levetiracetam) 500 mg PO ASDIRECTED MILAD Simvastatin (Zocor) 20 mg PO BEDTIME MILAD Sodium Chloride (Saline Flush) 10 ml FLUSH ASDIRECTED PRN PRN Reason: Keep Vein Open Last Admin: 09/09/19 19:44 Dose: 10 ml Admin: 09/09/19 17:45 Dose: 10 ml Assessment/Plan Comment:: Assessment Right sided pneumonia with right-sided pleural effusion * Patient with 2-week history of symptoms and chest x-ray on August 30 showing right-sided pleural effusion. * Repeat chest x-ray done today showed extensive right-sided pneumonia. * CT of the chest showed a consolidation within the right upper lung extending from the right hilar region most likely representing pneumonia. * Started on Rocephin and azithromycin. Sepsis * Presented hypotensive with tachycardia, tachypneic, white count 12,550, lactic acid 2.2 * Fluid boluses started in ER and finished on the floor * Significant improvement in blood pressure and heart rate with fluid bolus. Good capillary refill and peripheral pulses. Elevated BNP of 546 with lower extremity edema and small pericardial effusion * Patient is showing some signs of congestive failure. This is likely due to some degree from the increased heart rate. * He has a history of chronic lower extremity edema secondary to treatment for his non-Hodgkin's lymphoma. * No previous history of congestive heart failure History of non-Hodgkin lymphoma with 3 brain lesions * Treated with chemotherapy and brain lesions treated with radiation * Left with chronic lower extremity edema. * MRI of the brain last month negative for lesion. History of seizure disorder * Patient had a seizure when he was diagnosed with his non-Hodgkin's lymphoma in June 2018. * They are slowly weaning his Keppra and his current dose Keppra is 500 mg every other day. Prediabetes * He is on Glucophage for his prediabetes. * Unknown last hemoglobin A1c Hyperlipidemia * Lipitor 20 mg daily Plan * Admit to medical floor * Continue fluid resuscitation * Rocephin and azithromycin for pneumonia * FiO2 to keep SPO2 greater than 92% * Echocardiogram when available. It is the weekend and will not be available until Thursday. * Repeat chest x-ray in 36 hours * Blood cultures x2 * CBC, CMP, mag, C-reactive protein tomorrow * DuoNeb every 4 hours as needed shortness of breath * Sliding scale insulin with bedside glucose 4 times daily * CODE STATUS full code * VTE prophylaxis with Lovenox - Mortality Measure Prognosis:: Good
[2019-09-09] MEDS: Albuterol/Ipratropium 3.0-0.5 MG/3 ML Neb Soln NEB PRN (23:27)
[2019-09-10] MEDS: Acetaminophen 325 MG Tab PO PRN ×3 (01:09→20:56)
[2019-09-10 07:05] LABS: HEMOGLOBIN A1C 6.2 % (4.50-6.20)
[2019-09-10] MEDS: Insulin Lispro 100 Units/ML 3 ML Vial SUBCUT SCH ×4 (07:55→22:11)
[2019-09-10] MEDS: Albuterol/Ipratropium 3.0-0.5 MG/3 ML Neb Soln NEB PRN ×3 (08:18→21:16)
[2019-09-10] MEDS ORDERED: Magnesium Sulfate/Water 2 GM in Premix Bag 1 BAG IV ONE (08:27)
[2019-09-10] MEDS ORDERED: Non-Formulary Medication 1 Each (Atorvastatin 20 MG) PO SCH (09:00)
[2019-09-10] MEDS: Enoxaparin 40 MG/0.4 ML Syringe SUBCUT SCH (09:18)
--- NOTE | 2019-09-10 13:56 | PCM.PN ---
- General Info Date of Service: 09/10/19 Admission Dx/Problem (Free Text): Admission Diagnosis/Problem Admission Diagnosis/Problem Pneumonia Subjective Update: Patient is feeling much better. He did not sleep well and is requesting to be to help him sleep tonight. Functional Status: Reports: Pain Controlled - Review of Systems General: Reports: Fatigue HEENT: Reports: No Symptoms Pulmonary: Reports: Cough Cardiovascular: Reports: No Symptoms Gastrointestinal: Reports: No Symptoms Musculoskeletal: Reports: No Symptoms - Patient Data Vitals - Most Recent: Last Vital Signs Temp 97.5 F 09/10/19 12:03 Pulse 106 H 09/10/19 12:03 Resp 20 09/10/19 12:03 BP 116/60 09/10/19 12:03 Pulse Ox 92 L 09/10/19 12:03 Weight - Most Recent: 172 lb I&O - Last 24 Hours: Intake & Output 09/09/19 09/10/19 09/10/19 22:59 06:59 14:59 Intake Total 1463 360 Output Total 400 350 Balance 1063 10 Lab Results Last 24 Hours: Laboratory Results - last 24 hr 09/09/19 09/09/19 09/09/19 Range/Units 17:45 17:45 17:45 WBC 12.55 H (4.23-9.07) K/mm3 RBC 4.70 (4.63-6.08) M/mm3 Hgb 11.2 L (13.7-17.5) gm/dl Hct 37.3 L (40.1-51.0) % MCV 79.4 D (79.0-92.2) fl MCH 23.8 L (25.7-32.2) pg MCHC 30.0 L (32.2-35.5) g/dl RDW Std Deviation 50.3 H (35.1-43.9) fL Plt Count 338 H D (163-337) K/mm3 MPV 9.3 L (9.4-12.3) fl Neut % (Auto) (34.0-67.9) % Lymph % (Auto) (21.8-53.1) % [place] % (Auto) (5.3-12.2) % Eos % (Auto) (0.8-7.0) Baso % (Auto) (0.1-1.2) % Neut # (Auto) (1.78-5.38) K/mm3 Lymph # (Auto) (1.32-3.57) K/mm3 [place] # (Auto) (0.30-0.82) K/mm3 Eos # (Auto) (0.04-0.54) K/mm3 Baso # (Auto) (0.01-0.08) K/mm3 Neutrophils % (Manual) 74 H (40-60) % Band Neutrophils % 0 (0-10) % Lymphocytes % (Manual) 8 L (20-40) % Atypical Lymphs % 0 % Monocytes % (Manual) 9 (2-10) % Eosinophils % (Manual) 6 (0.8-7.0) % Basophils % (Manual) 3 H (0.2-1.2) Manual Slide Review Platelet Estimate Adequate Hypochromasia Few Poikilocytosis 1+ slight Anisocytosis 1+ slight Ovalocytes 1+ slight [place] Cells Few RBC Morph Comment Not Reportable PT 11.6 (9.7-12.0) SECONDS INR 1.07 APTT 29 (22-31) SECONDS Sodium 144 (136-145) mEq/L Potassium 4.2 (3.5-5.1) mEq/L Chloride 106 (98-107) mEq/L Carbon Dioxide 27 (21-32) mEq/L Anion Gap 15.2 H (5-15) BUN 12 (7-18) mg/dL Creatinine 0.8 (0.7-1.3) mg/dL Est Cr Clr Drug Dosing 79.56 mL/min Estimated GFR (MDRD) > 60 (>60) mL/min BUN/Creatinine Ratio 15.0 (14-18) Glucose 114 (83-115) mg/dL POC Glucose (83-110) mg/dL Hemoglobin A1c (4.50-6.20) % Lactic Acid (0.4-2.0) mmol/L Calcium 8.8 (8.5-10.1) mg/dL Magnesium 1.9 (1.8-2.4) mg/dl Total Bilirubin 0.4 (0.2-1.0) mg/dL AST 14 L (15-37) U/L ALT 15 L (16-63) U/L Alkaline Phosphatase 155 H (46-116) U/L Troponin I < 0.017 (0.00-0.056) ng/mL C-Reactive Protein (<1.0) mg/dL NT-Pro-B Natriuret Pep (0-125) pg/mL Total Protein 5.7 L (6.4-8.2) g/dl Albumin 2.3 L (3.4-5.0) g/dl Globulin 3.4 gm/dL Albumin/Globulin Ratio 0.7 L (1-2) 09/09/19 09/09/19 09/09/19 Range/Units 17:45 17:45 19:29 WBC (4.23-9.07) K/mm3 RBC (4.63-6.08) M/mm3 Hgb (13.7-17.5) gm/dl Hct (40.1-51.0) % MCV (79.0-92.2) fl MCH (25.7-32.2) pg MCHC (32.2-35.5) g/dl RDW Std Deviation (35.1-43.9) fL Plt Count (163-337) K/mm3 MPV (9.4-12.3) fl Neut % (Auto) (34.0-67.9) % Lymph % (Auto) (21.8-53.1) % [place] % (Auto) (5.3-12.2) % Eos % (Auto) (0.8-7.0) Baso % (Auto) (0.1-1.2) % Neut # (Auto) (1.78-5.38) K/mm3 Lymph # (Auto) (1.32-3.57) K/mm3 [place] # (Auto) (0.30-0.82) K/mm3 Eos # (Auto) (0.04-0.54) K/mm3 Baso # (Auto) (0.01-0.08) K/mm3 Neutrophils % (Manual) (40-60) % Band Neutrophils % (0-10) % Lymphocytes % (Manual) (20-40) % Atypical Lymphs % % Monocytes % (Manual) (2-10) % Eosinophils % (Manual) (0.8-7.0) % Basophils % (Manual) (0.2-1.2) Manual Slide Review Platelet Estimate Hypochromasia Poikilocytosis Anisocytosis Ovalocytes [place] Cells RBC Morph Comment PT (9.7-12.0) SECONDS INR APTT (22-31) SECONDS Sodium (136-145) mEq/L Potassium (3.5-5.1) mEq/L Chloride (98-107) mEq/L Carbon Dioxide (21-32) mEq/L Anion Gap (5-15) BUN (7-18) mg/dL Creatinine (0.7-1.3) mg/dL Est Cr Clr Drug Dosing mL/min Estimated GFR (MDRD) (>60) mL/min BUN/Creatinine Ratio (14-18) Glucose (83-115) mg/dL POC Glucose (83-110) mg/dL Hemoglobin A1c (4.50-6.20) % Lactic Acid 2.2 H* (0.4-2.0) mmol/L Calcium (8.5-10.1) mg/dL Magnesium (1.8-2.4) mg/dl Total Bilirubin (0.2-1.0) mg/dL AST (15-37) U/L ALT (16-63) U/L Alkaline Phosphatase (46-116) U/L Troponin I (0.00-0.056) ng/mL C-Reactive Protein 19.8 H* (<1.0) mg/dL NT-Pro-B Natriuret Pep 546 H (0-125) pg/mL Total Protein (6.4-8.2) g/dl Albumin (3.4-5.0) g/dl Globulin gm/dL Albumin/Globulin Ratio (1-2) 09/09/19 09/10/19 09/10/19 Range/Units 22:40 05:58 05:58 WBC 10.40 H (4.23-9.07) K/mm3 RBC 3.88 L (4.63-6.08) M/mm3 Hgb 9.3 L D (13.7-17.5) gm/dl Hct 31.3 L (40.1-51.0) % MCV 80.7 (79.0-92.2) fl MCH 24.0 L (25.7-32.2) pg MCHC 29.7 L (32.2-35.5) g/dl RDW Std Deviation 49.9 H (35.1-43.9) fL Plt Count 287 (163-337) K/mm3 MPV 9.8 (9.4-12.3) fl Neut % (Auto) 72.8 H (34.0-67.9) % Lymph % (Auto) 11.2 L (21.8-53.1) % [place] % (Auto) 12.6 H (5.3-12.2) % Eos % (Auto) 1.8 (0.8-7.0) Baso % (Auto) 0.6 (0.1-1.2) % Neut # (Auto) 7.58 H (1.78-5.38) K/mm3 Lymph # (Auto) 1.16 L (1.32-3.57) K/mm3 [place] # (Auto) 1.31 H (0.30-0.82) K/mm3 Eos # (Auto) 0.19 (0.04-0.54) K/mm3 Baso # (Auto) 0.06 (0.01-0.08) K/mm3 Neutrophils % (Manual) (40-60) % Band Neutrophils % (0-10) % Lymphocytes % (Manual) (20-40) % Atypical Lymphs % % Monocytes % (Manual) (2-10) % Eosinophils % (Manual) (0.8-7.0) % Basophils % (Manual) (0.2-1.2) Manual Slide Review Abnormal smear Platelet Estimate Hypochromasia Poikilocytosis Anisocytosis Ovalocytes [place] Cells RBC Morph Comment PT (9.7-12.0) SECONDS INR APTT (22-31) SECONDS Sodium 142 (136-145) mEq/L Potassium 3.8 (3.5-5.1) mEq/L Chloride 109 H (98-107) mEq/L Carbon Dioxide 22 (21-32) mEq/L Anion Gap 14.8 (5-15) BUN 9 (7-18) mg/dL Creatinine 0.7 (0.7-1.3) mg/dL Est Cr Clr Drug Dosing 93.99 mL/min Estimated GFR (MDRD) > 60 (>60) mL/min BUN/Creatinine Ratio 12.9 L (14-18) Glucose 107 (83-115) mg/dL POC Glucose (83-110) mg/dL Hemoglobin A1c (4.50-6.20) % Lactic Acid 1.0 (0.4-2.0) mmol/L Calcium 7.9 L (8.5-10.1) mg/dL Magnesium 1.7 L (1.8-2.4) mg/dl Total Bilirubin 0.5 (0.2-1.0) mg/dL AST 13 L (15-37) U/L ALT 12 L (16-63) U/L Alkaline Phosphatase 127 H (46-116) U/L Troponin I (0.00-0.056) ng/mL C-Reactive Protein 17.5 H* (<1.0) mg/dL NT-Pro-B Natriuret Pep (0-125) pg/mL Total Protein 4.8 L (6.4-8.2) g/dl Albumin 1.9 L (3.4-5.0) g/dl Globulin 2.9 gm/dL Albumin/Globulin Ratio 0.7 L (1-2) 09/10/19 09/10/19 09/10/19 Range/Units 05:58 06:56 12:50 WBC (4.23-9.07) K/mm3 RBC (4.63-6.08) M/mm3 Hgb (13.7-17.5) gm/dl Hct (40.1-51.0) % MCV (79.0-92.2) fl MCH (25.7-32.2) pg MCHC (32.2-35.5) g/dl RDW Std Deviation (35.1-43.9) fL Plt Count (163-337) K/mm3 MPV (9.4-12.3) fl Neut % (Auto) (34.0-67.9) % Lymph % (Auto) (21.8-53.1) % [place] % (Auto) (5.3-12.2) % Eos % (Auto) (0.8-7.0) Baso % (Auto) (0.1-1.2) % Neut # (Auto) (1.78-5.38) K/mm3 Lymph # (Auto) (1.32-3.57) K/mm3 [place] # (Auto) (0.30-0.82) K/mm3 Eos # (Auto) (0.04-0.54) K/mm3 Baso # (Auto) (0.01-0.08) K/mm3 Neutrophils % (Manual) (40-60) % Band Neutrophils % (0-10) % Lymphocytes % (Manual) (20-40) % Atypical Lymphs % % Monocytes % (Manual) (2-10) % Eosinophils % (Manual) (0.8-7.0) % Basophils % (Manual) (0.2-1.2) Manual Slide Review Platelet Estimate Hypochromasia Poikilocytosis Anisocytosis Ovalocytes [place] Cells RBC Morph Comment PT (9.7-12.0) SECONDS INR APTT (22-31) SECONDS Sodium (136-145) mEq/L Potassium (3.5-5.1) mEq/L Chloride (98-107) mEq/L Carbon Dioxide (21-32) mEq/L Anion Gap (5-15) BUN (7-18) mg/dL Creatinine (0.7-1.3) mg/dL Est Cr Clr Drug Dosing mL/min Estimated GFR (MDRD) (>60) mL/min BUN/Creatinine Ratio (14-18) Glucose (83-115) mg/dL POC Glucose 100 150 H (83-110) mg/dL Hemoglobin A1c 6.20 (4.50-6.20) % Lactic Acid (0.4-2.0) mmol/L Calcium (8.5-10.1) mg/dL Magnesium (1.8-2.4) mg/dl Total Bilirubin (0.2-1.0) mg/dL AST (15-37) U/L ALT (16-63) U/L Alkaline Phosphatase (46-116) U/L Troponin I (0.00-0.056) ng/mL C-Reactive Protein (<1.0) mg/dL NT-Pro-B Natriuret Pep (0-125) pg/mL Total Protein (6.4-8.2) g/dl Albumin (3.4-5.0) g/dl Globulin gm/dL Albumin/Globulin Ratio (1-2) Med Orders - Current: Current Medications Acetaminophen (Tylenol) 650 mg PO Q4H PRN PRN Reason: Pain (Mild 1-3)/fever Last Admin: 09/10/19 10:23 Dose: 650 mg Albuterol/Ipratropium (Duoneb 3.0-0.5 Mg/3 Ml) 3 ml NEB Q4HRRT PRN PRN Reason: Shortness of Breath Last Admin: 09/10/19 08:18 Dose: 3 ml Azithromycin (Zithromax) 250 mg PO Q24H [facility] Enoxaparin Sodium (Lovenox) 40 mg SUBCUT DAILY [facility] Last Admin: 09/10/19 09:18 Dose: 40 mg Ceftriaxone Sodium 1 gm/ (Sodium Chloride) 100 mls @ 200 mls/hr IV Q24H [facility] Insulin Human Lispro (Humalog) 0 unit SUBCUT QIDACANDBED [facility]; Protocol Last Admin: 09/10/19 12:56 Dose: Not Given Levetiracetam (Keppra) 500 mg PO Q48H [facility] Melatonin (Melatonin) 6 mg PO BEDTIME [place]AD Simvastatin (Zocor) 20 mg PO BEDTIME [facility] Sodium Chloride (Saline Flush) 10 ml FLUSH ASDIRECTED PRN PRN Reason: Keep Vein Open Last Admin: 09/09/19 23:35 Dose: 10 ml Discontinued Medications Acetaminophen (Tylenol) 650 mg PO NOW ONE Stop: 09/09/19 20:41 Last Admin: 09/09/19 20:49 Dose: 650 mg Azithromycin (Zithromax) 500 mg PO ONETIME ONE Stop: 09/09/19 20:29 Last Admin: 09/09/19 20:46 Dose: 500 mg Sodium Chloride (Normal Saline) 1,000 mls @ 100 mls/hr IV ONETIME ONE Stop: 09/10/19 03:25 Last Admin: 09/09/19 23:14 Dose: 100 mls/hr Ceftriaxone Sodium 2 gm/ (Sodium Chloride) 100 mls @ 200 mls/hr IV ONETIME ONE Stop: 09/09/19 20:56 Last Admin: 09/09/19 20:47 Dose: 200 mls/hr Sodium Chloride (Normal Saline) 1,000 mls @ 999 mls/hr IV ONETIME ONE Stop: 09/09/19 21:45 Last Admin: 09/09/19 20:51 Dose: 100 mls/hr Magnesium Sulfate 2 gm/ Premix 50 mls @ 25 mls/hr IV ONETIME ONE Stop: 09/10/19 10:26 Last Admin: 09/10/19 09:17 Dose: 25 mls/hr Iopamidol (Isovue-300 (61%)) 100 ml IVPUSH ONETIME ONE Stop: 09/09/19 19:28 Last Admin: 09/09/19 19:44 Dose: 100 ml - Exam Quality Assessment: Supplemental Oxygen General: Alert, Oriented HEENT: Pupils Equal, Mucous Membr. Moist/[place] Neck: Supple Lungs: Normal Respiratory Effort, Rhonchi (Improved) Cardiovascular: Regular Rhythm, Tachycardia GI/Abdominal Exam: Normal Bowel Sounds, Soft, Non-Tender, No Organomegaly, No Distention, No Abnormal Bruit, No Mass Extremities: Normal Inspection, Normal Range of Motion, Non-Tender, No Pedal Edema, Normal Capillary Refill Sepsis Event Note - Evaluation Sepsis Screening Result: No Definite Risk - Focused Exam Vital Signs: Vital Signs Temp Pulse Resp BP Pulse Ox Pulse Ox 09/10/19 12:03 97.5 F 106 H 20 116/60 92 L 09/10/19 08:40 93 L 09/10/19 08:19 97 09/10/19 07:21 97.5 F 110 H 24 H 106/60 96 09/10/19 04:04 97.9 F 107 H 17 94/50 L 93 L Date Exam was Performed: 09/10/19 Time Exam was Performed: 13:51 - Problem List Review Problem List Initiated/Reviewed/Updated: Yes - My Orders Last 24 Hours: My Active Orders 09/09/19 22:12 Oxygen Therapy [RC] PRN Up With Assistance [RC] ASDIRECTED VTE/DVT Education [RC] PER UNIT ROUTINE Vital Signs [RC] Q4H Acetaminophen [Tylenol] 650 mg PO Q4H PRN Resuscitation Status Routine 09/09/19 22:16 Albuterol/Ipratropium [DuoNeb 3.0-0.5 MG/3 ML] 3 ml NEB Q4HRRT PRN 09/09/19 22:17 RT Aerosol Therapy [RC] ASDIRECTED 09/09/19 22:48 Blood Glucose Check, Bedside [RC] QIDACANDBED 09/09/19 22:55 RT Chest Physiotherapy [RC] ASDIRECTED RT Incentive Spirometry [RC] ASDIRECTED 09/10/19 07:00 Insulin Lispro [HumaLOG] See Protocol SUBCUT QIDACANDBED 09/10/19 09:00 Enoxaparin [Lovenox] 40 mg SUBCUT DAILY 09/10/19 20:00 Azithromycin [Zithromax] 250 mg PO Q24H cefTRIAXone [Rocephin] 1 gm Sodium Chloride 0.9% [Normal Saline] 100 ml IV Q24H 09/10/19 21:00 Melatonin 6 mg PO BEDTIME Simvastatin [Zocor] 20 mg PO BEDTIME 09/10/19 Breakfast Heart Healthy Diet [DIET] 09/11/19 05:11 C-REACTIVE PROTEIN [CHEM] AM CBC WITH AUTO DIFF [HEME] AM COMPREHENSIVE METABOLIC PN,CMP [CHEM] AM MAGNESIUM [CHEM] AM 09/11/19 08:00 CXR [Chest 1V Frontal] [CR] Routine 09/11/19 09:00 levETIRAcetam [Keppra] 500 mg PO Q48H 09/12/19 05:11 C-REACTIVE PROTEIN [CHEM] AM CBC WITH AUTO DIFF [HEME] AM COMPREHENSIVE METABOLIC PN,CMP [CHEM] AM MAGNESIUM [CHEM] AM - Plan Plan:: Assessment Right sided pneumonia with right-sided pleural effusion * Patient with 2-week history of symptoms and chest x-ray on August 30 showing right-sided pleural effusion. * Repeat chest x-ray done on day of showed extensive right-sided pneumonia. * CT of the chest showed a consolidation within the right upper lung extending from the right hilar region most likely representing pneumonia. * Rocephin and azithromycin. * WBC 12.5-->10.4 * Blood cultures x2 pending Sepsis - improved * Presented hypotensive with tachycardia, tachypneic, white count 12,550, lactic acid 2.2 * WBC 10.4, Lactic acid 1.0 * Fluid boluses started in ER and finished on the floor * Significant improvement in blood pressure and heart rate with fluid bolus. Good capillary refill and peripheral pulses. * Blood cultures x2 pending Elevated BNP of 546 with lower extremity edema and small pericardial effusion * Patient is showing some signs of congestive failure. This is likely due to some degree from the increased heart rate. * He has a history of chronic lower extremity edema secondary to treatment for his non-Hodgkin's lymphoma. * No previous history of congestive heart failure History of non-Hodgkin lymphoma with 3 brain lesions * Treated with chemotherapy and brain lesions treated with radiation * Left with chronic lower extremity edema. * MRI of the brain last month negative for lesion. History of seizure disorder * Patient had a seizure when he was diagnosed with his non-Hodgkin's lymphoma in June 2018. * They are slowly weaning his Keppra and his current dose Keppra is 500 mg every other day. Prediabetes * He is on Glucophage for his prediabetes at home - held * Unknown last hemoglobin A1c Hyperlipidemia * Lipitor 20 mg daily Plan * Admit to medical floor * Continue fluid resuscitation * Continue Rocephin and azithromycin for pneumonia * FiO2 to keep SPO2 greater than 92% * Echocardiogram when available. It is the weekend and will not be available until Thursday. * Repeat chest x-ray tomorrow * CBC, CMP, mag, C-reactive protein tomorrow * DuoNeb every 4 hours as needed shortness of breath * Sliding scale insulin with bedside glucose 4 times daily * Incentive spirometry and Acapella * CODE STATUS full code * VTE prophylaxis with Lovenox
[2019-09-10] MEDS: cefTRIAXone 1 GM in Sodium Chloride 0.9% 100 ML IV SCH (20:55)
[2019-09-10] MEDS: Azithromycin 250 MG Tab PO SCH (20:56)
[2019-09-10] MEDS: Simvastatin 20 MG Tab PO SCH (20:56)
[2019-09-10] MEDS ORDERED: Melatonin 3 MG Tab PO SCH (21:00)
[2019-09-11] MEDS: Insulin Lispro 100 Units/ML 3 ML Vial SUBCUT SCH ×4 (07:31→22:44)
[2019-09-11] MEDS: Enoxaparin 40 MG/0.4 ML Syringe SUBCUT SCH (08:07)
[2019-09-11] MEDS: Albuterol/Ipratropium 3.0-0.5 MG/3 ML Neb Soln NEB PRN ×2 (08:20→21:03)
[2019-09-11] MEDS ORDERED: levETIRAcetam 500 MG Tab PO SCH (09:00)
[2019-09-11] MEDS ORDERED: Sodium Chloride 0.9% 1,000 ML IV SCH (09:45)
[2019-09-11] MEDS: Acetaminophen 325 MG Tab PO PRN ×2 (10:00→20:07)
[2019-09-11] MEDS: guaiFENesin 600 MG Tab.ER PO SCH ×2 (10:01→20:07)
[2019-09-11] MEDS: Sodium Chloride 0.9% 1,000 ML IV ONE ×2 (10:02→21:53)
--- NOTE | 2019-09-11 11:04 | PCM.PN ---
- General Info Date of Service: 09/11/19 Admission Dx/Problem (Free Text): Admission Diagnosis/Problem Admission Diagnosis/Problem Pneumonia Subjective Update: Patient states that he is feeling somewhat better. He is less short of breath, but continues to have difficulty sleeping and is fatigued. He states he has difficulty getting comfortable when trying to get to sleep. Functional Status: Reports: Pain Controlled - Review of Systems General: Reports: Fatigue HEENT: Reports: No Symptoms Pulmonary: Reports: Shortness of Breath, Cough Cardiovascular: Reports: No Symptoms Gastrointestinal: Reports: No Symptoms Musculoskeletal: Reports: No Symptoms Neurological: Reports: No Symptoms Psychiatric: Reports: No Symptoms - Patient Data Vitals - Most Recent: Last Vital Signs Temp 97.9 F 09/11/19 08:12 Pulse 113 H 09/11/19 08:12 Resp 20 09/11/19 08:12 BP 110/62 09/11/19 08:12 Pulse Ox 92 L 09/11/19 08:20 Weight - Most Recent: 171 lb 1.6 oz I&O - Last 24 Hours: Intake & Output 09/10/19 09/11/19 09/11/19 22:59 06:59 14:59 Intake Total 450 500 420 Output Total 700 Balance 450 -200 420 Imaging Impressions - Last 24 Hours: Chest x-ray impression: 1. Increased right mid lower lung zone consolidative densities. Increased moderate right pleural effusion. Lab Results Last 24 Hours: Laboratory Results - last 24 hr 09/10/19 09/10/19 09/11/19 Range/Units 12:50 17:29 05:30 WBC 11.06 H (4.23-9.07) K/mm3 RBC 3.95 L (4.63-6.08) M/mm3 Hgb 9.7 L (13.7-17.5) gm/dl Hct 31.7 L (40.1-51.0) % MCV 80.3 (79.0-92.2) fl MCH 24.6 L (25.7-32.2) pg MCHC 30.6 L (32.2-35.5) g/dl RDW Std Deviation 49.2 H (35.1-43.9) fL Plt Count 297 (163-337) K/mm3 MPV 9.7 (9.4-12.3) fl Neut % (Auto) 78.0 H (34.0-67.9) % Lymph % (Auto) 7.1 L (21.8-53.1) % [place] % (Auto) 12.3 H (5.3-12.2) % Eos % (Auto) 1.4 (0.8-7.0) Baso % (Auto) 0.4 (0.1-1.2) % Neut # (Auto) 8.64 H (1.78-5.38) K/mm3 Lymph # (Auto) 0.78 L (1.32-3.57) K/mm3 [place] # (Auto) 1.36 H (0.30-0.82) K/mm3 Eos # (Auto) 0.15 (0.04-0.54) K/mm3 Baso # (Auto) 0.04 (0.01-0.08) K/mm3 Manual Slide Review Abnormal smear Sodium (136-145) mEq/L Potassium (3.5-5.1) mEq/L Chloride (98-107) mEq/L Carbon Dioxide (21-32) mEq/L Anion Gap (5-15) BUN (7-18) mg/dL Creatinine (0.7-1.3) mg/dL Est Cr Clr Drug Dosing mL/min Estimated GFR (MDRD) (>60) mL/min BUN/Creatinine Ratio (14-18) Glucose (83-115) mg/dL POC Glucose 150 H 122 H (83-110) mg/dL Calcium (8.5-10.1) mg/dL Magnesium (1.8-2.4) mg/dl Total Bilirubin (0.2-1.0) mg/dL AST (15-37) U/L ALT (16-63) U/L Alkaline Phosphatase (46-116) U/L C-Reactive Protein (<1.0) mg/dL Total Protein (6.4-8.2) g/dl Albumin (3.4-5.0) g/dl Globulin gm/dL Albumin/Globulin Ratio (1-2) 09/11/19 Range/Units 05:30 WBC (4.23-9.07) K/mm3 RBC (4.63-6.08) M/mm3 Hgb (13.7-17.5) gm/dl Hct (40.1-51.0) % MCV (79.0-92.2) fl MCH (25.7-32.2) pg MCHC (32.2-35.5) g/dl RDW Std Deviation (35.1-43.9) fL Plt Count (163-337) K/mm3 MPV (9.4-12.3) fl Neut % (Auto) (34.0-67.9) % Lymph % (Auto) (21.8-53.1) % [place] % (Auto) (5.3-12.2) % Eos % (Auto) (0.8-7.0) Baso % (Auto) (0.1-1.2) % Neut # (Auto) (1.78-5.38) K/mm3 Lymph # (Auto) (1.32-3.57) K/mm3 [place] # (Auto) (0.30-0.82) K/mm3 Eos # (Auto) (0.04-0.54) K/mm3 Baso # (Auto) (0.01-0.08) K/mm3 Manual Slide Review Sodium 140 (136-145) mEq/L Potassium 3.8 (3.5-5.1) mEq/L Chloride 106 (98-107) mEq/L Carbon Dioxide 21 (21-32) mEq/L Anion Gap 16.8 H (5-15) BUN 9 (7-18) mg/dL Creatinine 0.7 (0.7-1.3) mg/dL Est Cr Clr Drug Dosing 93.99 mL/min Estimated GFR (MDRD) > 60 (>60) mL/min BUN/Creatinine Ratio 12.9 L (14-18) Glucose 119 H (83-115) mg/dL POC Glucose (83-110) mg/dL Calcium 8.2 L (8.5-10.1) mg/dL Magnesium 1.9 (1.8-2.4) mg/dl Total Bilirubin 0.5 (0.2-1.0) mg/dL AST 12 L (15-37) U/L ALT 12 L (16-63) U/L Alkaline Phosphatase 126 H (46-116) U/L C-Reactive Protein 19.9 H* (<1.0) mg/dL Total Protein 5.0 L (6.4-8.2) g/dl Albumin 1.9 L (3.4-5.0) g/dl Globulin 3.1 gm/dL Albumin/Globulin Ratio 0.6 L (1-2) Tristen Results Last 24 Hours: Microbiology 09/09/19 19:29 Aerobic Blood Culture - Preliminary Blood - Venous NO GROWTH AFTER 1 DAY Anaerobic Blood Culture - Preliminary NO GROWTH AFTER 1 DAY 09/09/19 19:35 Aerobic Blood Culture - Preliminary Blood - Venous - Lab Draw NO GROWTH AFTER 1 DAY Anaerobic Blood Culture - Preliminary NO GROWTH AFTER 1 DAY Med Orders - Current: Current Medications Acetaminophen (Tylenol) 650 mg PO Q4H PRN PRN Reason: Pain (Mild 1-3)/fever Last Admin: 09/11/19 10:00 Dose: 650 mg Acetylcysteine (Mucomyst 20%) 800 mg NEB QIDRT [facility] Albuterol/Ipratropium (Duoneb 3.0-0.5 Mg/3 Ml) 3 ml NEB Q4HRRT PRN PRN Reason: Shortness of Breath Last Admin: 09/11/19 08:20 Dose: 3 ml Azithromycin (Zithromax) 250 mg PO Q24H [facility] Last Admin: 09/10/19 20:56 Dose: 250 mg Enoxaparin Sodium (Lovenox) 40 mg SUBCUT DAILY [facility] Last Admin: 09/11/19 08:07 Dose: 40 mg Guaifenesin (Mucinex) 1,200 mg PO BID [facility] Last Admin: 09/11/19 10:01 Dose: 1,200 mg Ceftriaxone Sodium 1 gm/ (Sodium Chloride) 100 mls @ 200 mls/hr IV Q24H [facility] Last Admin: 09/10/19 20:55 Dose: 200 mls/hr Sodium Chloride (Normal Saline) 1,000 mls @ 75 mls/hr IV ONETIME ONE Stop: 09/11/19 23:19 Last Admin: 09/11/19 10:02 Dose: 75 mls/hr Insulin Human Lispro (Humalog) 0 unit SUBCUT [facility]IDACANDBED [facility]; Protocol Last Admin: 09/11/19 07:31 Dose: Not Given Levetiracetam (Keppra) 500 mg PO Q48H [facility] Last Admin: 09/11/19 08:07 Dose: 500 mg Melatonin (Melatonin) 6 mg PO BEDTIME [facility] Last Admin: 09/10/19 20:56 Dose: 6 mg Simvastatin (Zocor) 20 mg PO BEDTIME [facility] Last Admin: 09/10/19 20:56 Dose: 20 mg Sodium Chloride (Saline Flush) 10 ml FLUSH ASDIRECTED PRN PRN Reason: Keep Vein Open Last Admin: 09/09/19 23:35 Dose: 10 ml Discontinued Medications Acetaminophen (Tylenol) 650 mg PO NOW ONE Stop: 09/09/19 20:41 Last Admin: 09/09/19 20:49 Dose: 650 mg Azithromycin (Zithromax) 500 mg PO ONETIME ONE Stop: 09/09/19 20:29 Last Admin: 09/09/19 20:46 Dose: 500 mg Sodium Chloride (Normal Saline) 1,000 mls @ 100 mls/hr IV ONETIME ONE Stop: 09/10/19 03:25 Last Admin: 09/09/19 23:14 Dose: 100 mls/hr Ceftriaxone Sodium 2 gm/ (Sodium Chloride) 100 mls @ 200 mls/hr IV ONETIME ONE Stop: 09/09/19 20:56 Last Admin: 09/09/19 20:47 Dose: 200 mls/hr Sodium Chloride (Normal Saline) 1,000 mls @ 999 mls/hr IV ONETIME ONE Stop: 09/09/19 21:45 Last Admin: 09/09/19 20:51 Dose: 100 mls/hr Magnesium Sulfate 2 gm/ Premix 50 mls @ 25 mls/hr IV ONETIME ONE Stop: 09/10/19 10:26 Last Admin: 09/10/19 09:17 Dose: 25 mls/hr Sodium Chloride (Normal Saline) 1,000 mls @ 75 mls/hr IV ASDIRECTED [facility] Iopamidol (Isovue-300 (61%)) 100 ml IVPUSH ONETIME ONE Stop: 09/09/19 19:28 Last Admin: 09/09/19 19:44 Dose: 100 ml - Exam General: Alert, Oriented HEENT: Pupils Equal, Mucous Membr. Moist/[place] Neck: Supple Lungs: Decreased Breath Sounds (Right lung), Rhonchi (Right midlung field). No : Normal Respiratory Effort (Mildly increased respiratory rate and effort. No use of accessory muscles.) Cardiovascular: Regular Rhythm, Tachycardia Extremities: Normal Inspection, Normal Capillary Refill, Pedal Edema (1-2+ chronic) Skin: Warm, Dry, Intact Psy/Mental Status: Alert, Normal Affect, Normal Mood Sepsis Event Note - Evaluation Sepsis Screening Result: No Definite Risk - Focused Exam Vital Signs: Vital Signs Temp Pulse Resp BP Pulse Ox Pulse Ox 09/11/19 08:20 92 L 09/11/19 08:12 97.9 F 113 H 20 110/62 93 L 09/11/19 00:11 98.2 F 119 H 16 104/68 89 L Date Exam was Performed: 09/11/19 Time Exam was Performed: 11:07 - Problem List Review Problem List Initiated/Reviewed/Updated: Yes - My Orders Last 24 Hours: My Active Orders 09/10/19 20:00 Azithromycin [Zithromax] 250 mg PO Q24H cefTRIAXone [Rocephin] 1 gm Sodium Chloride 0.9% [Normal Saline] 100 ml IV Q24H 09/10/19 21:00 Melatonin 6 mg PO BEDTIME Simvastatin [Zocor] 20 mg PO BEDTIME 09/11/19 08:00 CXR [Chest 1V Frontal] [CR] Routine 09/11/19 09:00 levETIRAcetam [Keppra] 500 mg PO Q48H 09/11/19 09:15 guaiFENesin [Mucinex] 1,200 mg PO BID 09/11/19 10:00 Acetylcysteine [Mucomyst 20%] 800 mg NEB QIDRT Sodium Chloride 0.9% [Normal Saline] 1,000 ml IV ONETIME 09/12/19 05:11 C-REACTIVE PROTEIN [CHEM] AM CBC WITH AUTO DIFF [HEME] AM COMPREHENSIVE METABOLIC PN,CMP [CHEM] AM MAGNESIUM [CHEM] AM - Plan Plan:: Assessment Right sided pneumonia with right-sided pleural effusion * Patient with 2-week history of symptoms and chest x-ray on August 30 showing right-sided pleural effusion. * Repeat chest x-ray done on day of admission, 09/09/2019, showed extensive right -sided pneumonia. * Chest x-ray 09/10/2019: Increased right mid lower lung zone consolidative densities. Increased moderate right pleural effusion. * CT of the chest showed a consolidation within the right upper lung extending from the right hilar region most likely representing pneumonia. * Rocephin and azithromycin. * WBC 12.5-->10.4-->11 * Blood cultures x2 pending -no growth so far * Clinically patient has improved, but chest x-rays has significantly worsened. Chest x-ray is now more in line with CT scan and is likely a lagging indicator. * There is some concern that the right-sided consolidation and adenopathy within the mediastinum may indicate recurrence of lymphoma. Sepsis - improved * Presented hypotensive with tachycardia, tachypneic, white count 12,550, lactic acid 2.2 * WBC 10.4, Lactic acid 1.0 * Fluid boluses started in ER and finished on the floor * Significant improvement in blood pressure and heart rate with fluid bolus. Good capillary refill and peripheral pulses. * Blood cultures x2 pending Elevated BNP of 546 with lower extremity edema and small pericardial effusion * Patient is showing some signs of congestive failure. This is likely due to some degree from the increased heart rate. * He has a history of chronic lower extremity edema secondary to treatment for his non-Hodgkin's lymphoma. * No previous history of congestive heart failure * Sinus tachycardia secondary to infection and possible mild intravascular hypovolemia. History of non-Hodgkin lymphoma with 3 brain lesions * Treated with chemotherapy and brain lesions treated with radiation * Chronic lower extremity edema. * MRI of the brain last month negative for lesion. History of seizure disorder * Patient had a seizure when he was diagnosed with his non-Hodgkin's lymphoma in June 2018. * They are slowly weaning his Keppra and his current dose Keppra is 500 mg every other day. Prediabetes * He is on Glucophage for his prediabetes at home - held * Hemoglobin A1c of 6.2 Hyperlipidemia * Lipitor 20 mg daily Plan * Admit to medical floor * Continue fluid resuscitation. 1 L over the rest of the day. * Continue Rocephin and azithromycin for pneumonia * FiO2 to keep SPO2 greater than 92% * Echocardiogram when available. It is the weekend and will not be available until Thursday. * Discuss case tomorrow with his oncologist. * CBC, CMP, mag, C-reactive protein tomorrow * DuoNeb every 4 hours as needed shortness of breath * Sliding scale insulin with bedside glucose 4 times daily * Incentive spirometry and Acapella * Mucinex and Mucomyst added * CODE STATUS full code * VTE prophylaxis with Lovenox
[2019-09-11] MEDS: Acetylcysteine 20% 200 MG/ML 4 ML Nebulizer Soln SDV NEB SCH ×3 (11:27→21:03)
[2019-09-11] MEDS: cefTRIAXone 1 GM in Sodium Chloride 0.9% 100 ML IV SCH (20:06)
[2019-09-11] MEDS: Simvastatin 20 MG Tab PO SCH (20:06)
[2019-09-11] MEDS: Azithromycin 250 MG Tab PO SCH (20:07)
--- NOTE | 2019-09-11 20:49 | PCM.SN ---
- Free Text/Narrative Note: This afternoon patient's heart rate increased to the 130s, blood pressure was marginally low with systolic blood pressures between 90 and 100 with mean arterial pressures in the low 60s, and oxygen saturations were in the upper 80s. At this point it was felt the patient would benefit from transfer to the ICU for closer monitoring. EKG was done which showed sinus tachycardia with a ventricular rate of 123. Multiple PVCs and PACs. A new RSR prime in V1. Patient will be switched over to a high flow nasal cannula and continue to encourage pulmonary toilet. Continue IV fluids.
[2019-09-11] MEDS ORDERED: Melatonin 3 MG Tab PO SCH (21:00)
[2019-09-11] MEDS ORDERED: Sodium Chloride 0.9% 500 ML IV ONE ×2 (21:08→21:14)
[2019-09-11] MEDS ORDERED: Sodium Chloride 0.9% 500 ML ONE (21:10)
[2019-09-11] MEDS ORDERED: cefTRIAXone 1 GM in Sodium Chloride 0.9% 100 ML IV ONE (21:20)
[2019-09-11] MEDS: Sodium Chloride 0.9% 1,000 ML IV SCH (22:11)
[2019-09-11] MEDS ORDERED: Codeine/guaiFENesin 10-100 MG/5 ML Syrup 5 ML Cup PO ONE (22:52)
[2019-09-11] MEDS ORDERED: traZODone 50 MG Tab PO ONE (22:53)
[2019-09-11] MEDS: Vancomycin 1 GM, Vancomycin 250 MG in Sodium Chloride 0.9% 250 ML IV SCH (23:10)
[2019-09-12] MEDS: Acetaminophen 325 MG Tab PO PRN (02:39)
[2019-09-12] MEDS ORDERED: Codeine/guaiFENesin 10-100 MG/5 ML Syrup 5 ML Cup PO ONE (02:41)
[2019-09-12] MEDS ORDERED: diphenhydrAMINE 50 MG/ML SDV IVPUSH ONE (03:14)
[2019-09-12] MEDS: Sodium Chloride 0.9% 1,000 ML IV SCH ×2 (04:38→09:24)
[2019-09-12] MEDS: Albuterol/Ipratropium 3.0-0.5 MG/3 ML Neb Soln NEB PRN ×2 (06:06→10:15)
[2019-09-12] MEDS: Acetylcysteine 20% 200 MG/ML 4 ML Nebulizer Soln SDV NEB SCH ×2 (06:06→10:15)
[2019-09-12] MEDS: Insulin Lispro 100 Units/ML 3 ML Vial SUBCUT SCH ×2 (06:29→11:15)
--- NOTE | 2019-09-12 07:33 | CR ---
Addendum: Amanda from patient relations representative called Dr. Jimenez on 09/12/19 at time 7:33 AM with below report --- Addendum1 above dictated on [09/13/2019 06:11] by [Blair Ureña, Justino Da Silva] --- --- Addendum1 above signed on [09/13/2019 06:33] by [Blair Ureña, Justino Da Silva] --- --- Original report below dictated on [09/11/2019 20:55] by [Blair Ureña, Justino Da Silva] --- --- Original report below signed on [09/12/2019 07:30] by [Blair Ureña, Justino Da Silva] --- Chest: Portable view of the chest was obtained. Comparison: Previous chest x-ray of 09/09/19. Continuing consolidation within the right midlung is seen which appears increased from prior study. Slight increased right-sided pleural effusion is also noted. Left lung is clear with no acute parenchymal change. Heart size is at the upper limits normal. Tortuous thoracic aorta is seen. Scoliosis is noted within the spine. Impression: 1. Increasing consolidation within the right midlung as well as slight increased right-sided pleural effusion. 2. Please see prior chest x-ray report for discussion of possible change from adenopathy causing postobstructive pneumonia. 3. Slight increased right-sided pleural effusion. Diagnostic code #9 This report was dictated in MDT I agree with preliminary report from [facility], finalized on 09/11/19, 9:10 AM Central Time --- Addendum1 signed ---
--- NOTE | 2019-09-12 07:33 | CR ---
Chest: Frontal view of the chest was obtained. Comparison: Chest is compared to prior subsequent chest CT study of performed on the same day at around time 7:45 PM. Consolidation is noted within portions of the right midlung and right lower lung. When reviewing subsequent CT exam there is felt to be some adenopathy surrounding the adjacent bronchi and findings are most likely due to postobstructive pneumonia. Findings on subsequent CT study are felt to be reactive from the pneumonia but are more likely due to neoplastic change. Small right-sided pleural effusion is seen. Impression: 1. Consolidation within the right midlung. When reviewing prior chest CT study with current chest x-ray, adenopathy seen on chest CT is most likely neoplastic with adenopathy felt to cause some obstructive change within the adjacent bronchi. Findings most likely represent postobstructive pneumonia. Diagnostic code #9 This report was dictated in MDT
[2019-09-12] MEDS ORDERED: Sodium Chloride 0.9% 500 ML IV ONE (07:38)
[2019-09-12] MEDS: Enoxaparin 40 MG/0.4 ML Syringe SUBCUT SCH (08:03)
[2019-09-12] MEDS: guaiFENesin 600 MG Tab.ER PO SCH (08:04)
[2019-09-12] MEDS ORDERED: Magnesium Sulfate/Water 2 GM in Premix Bag 1 BAG IV ONE (08:44)
--- NOTE | 2019-09-12 09:17 | CR ---
Chest: Portable view of the chest was obtained. Comparison: Prior chest x-ray of 09/11/19. Continuing parenchymal density within the right midlung is seen. Small right-sided pleural effusion is seen slightly improved from previous exam. Left lung remains clear. Heart size and mediastinum are stable. Impression: 1. Small right-sided pleural effusion has slightly improved. Other portions of the chest are stable. Diagnostic code #3 This report was dictated in MDT
[2019-09-12] MEDS: Vancomycin 1 GM, Vancomycin 250 MG in Sodium Chloride 0.9% 250 ML IV SCH (11:11)
--- NOTE | 2019-09-12 11:55 | PCM.DCSUM1 ---
Discharge Summary - Hospital Course HPI Initial Comments: 74-year-old male presents to the emergency department after being referred by the [place] [facility] with shortness of breath, and productive sputum of moody phlegm. Patient states that over the last 2 weeks he has had increasing difficulty with breathing. He states it has been difficult to sleep because he feels like he has a heavy chest. Last week he was seen at the [place] [facility] and a chest x-ray was done at [facility] which showed a pleural effusion. Repeat chest x-ray done today showed worsening of that pleural effusion and he was sent to the emergency department for further evaluation and treatment. Patient states that on August 30 he did take azithromycin 500 mg 1 time because initially it was felt to be a pneumonia. When the provider received the chest x-ray results it appears that only a pleural effusion was noted and antibiotics were stopped. Patient does have a [id number] history, but stopped smoking in the 1980s. He denies any fever but does complain of some chills. He has had decreased appetite but has been drinking a protein drink. Patient was diagnosed with Hodgkin's lymphoma with brain lesions July 21, 2018. Patient underwent a brain biopsy, radiation, and chemotherapy. He has had significant lower extremity edema since chemotherapy. He states that his lower extremity edema is better. In the emergency room patient had a CT scan of the chest which showed: 1. Small pericardial effusion. 2. Small right sided pleural effusion. 3. Consolidation within right upper lung extending from the right hilar region. Findings most likely representing pneumonia. 4. Adenopathy within the mediastinum possibly relating to reactive adenopathy from the right sided pneumonia. Follow-up chest CT will be needed several months after the patient's clinical condition improves. Brief History: Assessment. Right sided pneumonia with right-sided pleural effusion. Patient with 2-week history of symptoms and chest x-ray on August 30 showing right-sided pleural effusion. Repeat chest x-ray done today showed extensive right-sided pneumonia. CT of the chest showed a consolidation within the right upper lung extending from the right hilar region most likely representing pneumonia. Started on Rocephin and azithromycin. Sepsis. Presented hypotensive with tachycardia, tachypneic, white count 12,550, lactic acid 2.2. Fluid boluses started in ER and finished on the floor. Significant improvement in blood pressure and heart rate with fluid bolus. Good capillary refill and peripheral pulses. Elevated BNP of 546 with lower extremity edema and small pericardial effusion. Patient is showing some signs of congestive failure. This is likely due to some degree from the increased heart rate. He has a history of chronic lower extremity edema secondary to treatment for his non-Hodgkin's lymphoma. No previous history of congestive heart failure. History of non-Hodgkin lymphoma with 3 brain lesions. Treated with chemotherapy and brain lesions treated with radiation. Left with chronic lower extremity edema. MRI of the brain last month negative for lesion. History of seizure disorder. Patient had a seizure when he was diagnosed with his non- Hodgkin's lymphoma in June 2018. They are slowly weaning his Keppra and his current dose Keppra is 500 mg every other day. Prediabetes. He is on Glucophage for his prediabetes. Unknown last hemoglobin A1c. Hyperlipidemia. Lipitor 20 mg daily. Plan. Admit to medical floor. Continue fluid resuscitation. Rocephin and azithromycin for pneumonia. FiO2 to keep SPO2 greater than 92%. Echocardiogram when available. It is the weekend and will not be available until Thursday. Repeat chest x-ray in 36 hours. Blood cultures x2. CBC, CMP, mag, C-reactive protein tomorrow. DuoNeb every 4 hours as needed shortness of breath. Sliding scale insulin with bedside glucose 4 times daily. CODE STATUS full code. VTE prophylaxis with Lovenox Diagnosis: Stroke: No - Discharge Data Discharge Date: 09/12/19 Discharge Disposition: DC/Tfer to Acute Hospital 02 Condition: Good - Referral to Home Health Primary Care Physician: Char Viera NP - Patient Summary/Data Hospital Course: Patient was admitted and treated for community-acquired pneumonia. He was started on Rocephin and Zithromax. 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 Last evening patient's heart rate increased to the 130s, blood pressure was marginally low with systolic blood pressures between 90 and 100 with mean arterial pressures in the low 60s, and oxygen saturations were in the upper 80s. At this point it was felt the patient would benefit from transfer to the ICU for closer monitoring. EKG was done which showed sinus tachycardia with a ventricular rate of 123. Multiple PVCs and PACs. A new RSR prime in V1. Patient was switched to a high flow nasal cannula and continue to encourage pulmonary toilet. Patient was given IV bolus and increased IV fluids 125 mL an hour. Vancomycin was added. Overnight there was no significant improvement, and oxygenation continue to worsen. Checks x-ray showed increasing consolidation within the right midlung as well as slight increased right sided pleural effusion, adenopathy possibly causing postobstructive pneumonia. This morning it was determined that patient would benefit from higher level of care. [facility] in [place] was consulted and the alligator trapper Dr. Perdue accept the patient for transfer. - Discharge Plan *PRESCRIPTION DRUG MONITORING PROGRAM REVIEWED*: No *COPY OF PRESCRIPTION DRUG MONITORING REPORT IN PATIENT [place]: No Home Medications: Home Meds Cholecalciferol (Vitamin D3) [Vitamin D3] 2,000 unit PO DAILY 04/05/18 [History] Multivitamin [Daily Will] 1 tab PO DAILY 04/05/18 [History] atorvaSTATin [Lipitor] 10 mg PO DAILY 04/05/18 [History] metFORMIN HCl [Metformin HCl ER] 750 mg PO DAILY 04/05/18 [History] levETIRAcetam [Levetiracetam] 500 mg PO BID 09/13/18 [History] Melatonin 10 mg PO DAILY 09/11/19 [History] [place]-3/DHA/Epa/Fish Oil [Fish Oil 500 MG Softgel] 1 tab PO DAILY 09/11/19 [ History] Oxygen Therapy Mode: High Humidity, High Flow Therapy Referrals: Char Viera, DOPING SUPERVISOR [Primary Care Provider] - - Discharge Summary/Plan Comment DC Time >30 min.: Yes Discharge Summary/Plan Comment: Transferred to [facility] in [place] to the ICU. Accepting physician Dr. Perdue. - General Info Date of Service: 09/12/19 Admission Dx/Problem (Free Text: Admission Diagnosis/Problem Admission Diagnosis/Problem Pneumonia Subjective Update: Patient states no significant change. He continues to be short of breath. - Review of Systems General: Reports: Other (Ill-appearing male in respiratory distress.) HEENT: Reports: No Symptoms Pulmonary: Reports: Shortness of Breath, Cough Cardiovascular: Reports: No Symptoms Gastrointestinal: Reports: No Symptoms Musculoskeletal: Reports: No Symptoms - Patient Data Vitals - Most Recent: Last Vital Signs Temp 97.1 F 09/12/19 08:00 Pulse 118 H 09/12/19 04:00 Resp 22 H 09/12/19 08:00 BP 102/65 09/12/19 08:00 Pulse Ox 96 09/12/19 10:15 Weight - Most Recent: 177 lb 1.6 oz I&O - Last 24 hours: Intake & Output 09/11/19 09/12/19 09/12/19 22:59 06:59 14:59 Intake Total 1060 1950 300 Output Total 200 400 Balance 860 1550 300 Lab Results - Last 24 hrs: Laboratory Results - last 24 hr 09/11/19 09/11/19 09/11/19 Range/Units 17:02 21:02 21:27 WBC (4.23-9.07) K/mm3 RBC (4.63-6.08) M/mm3 Hgb (13.7-17.5) gm/dl Hct (40.1-51.0) % MCV (79.0-92.2) fl MCH (25.7-32.2) pg MCHC (32.2-35.5) g/dl RDW Std Deviation (35.1-43.9) fL Plt Count (163-337) K/mm3 MPV (9.4-12.3) fl Neut % (Auto) (34.0-67.9) % Lymph % (Auto) (21.8-53.1) % Barry % (Auto) (5.3-12.2) % Eos % (Auto) (0.8-7.0) Baso % (Auto) (0.1-1.2) % Neut # (Auto) (1.78-5.38) K/mm3 Lymph # (Auto) (1.32-3.57) K/mm3 Barry # (Auto) (0.30-0.82) K/mm3 Eos # (Auto) (0.04-0.54) K/mm3 Baso # (Auto) (0.01-0.08) K/mm3 Manual Slide Review Puncture Site ABG pH (7.35-7.45) ABG pCO2 (35.0-45.0) mmHg ABG pO2 (80.0-100.0) mmHg ABG HCO3 (22.0-26.0) meq/L ABG O2 Saturation (96.0-97.0) % ABG Base Excess (-2-2.0) [place] Test A-a Gradient mmHg O2 Delivery Device Oxygen Flow Rate FiO2 (21.00-100.00) % Sodium (136-145) mEq/L Potassium (3.5-5.1) mEq/L Chloride (98-107) mEq/L Carbon Dioxide (21-32) mEq/L Anion Gap (5-15) BUN (7-18) mg/dL Creatinine (0.7-1.3) mg/dL Est Cr Clr Drug Dosing mL/min Estimated GFR (MDRD) (>60) mL/min BUN/Creatinine Ratio (14-18) Glucose (83-115) mg/dL POC Glucose 166 H 115 H (83-110) mg/dL Lactic Acid 1.1 (0.4-2.0) mmol/L Calcium (8.5-10.1) mg/dL Magnesium (1.8-2.4) mg/dl Total Bilirubin (0.2-1.0) mg/dL AST (15-37) U/L ALT (16-63) U/L Alkaline Phosphatase (46-116) U/L C-Reactive Protein (<1.0) mg/dL Total Protein (6.4-8.2) g/dl Albumin (3.4-5.0) g/dl Globulin gm/dL Albumin/Globulin Ratio (1-2) Urine Color (Yellow) Urine Appearance (Clear) Urine pH (5.0-8.0) Ur Specific Elrod (1.005-1.030) Urine Protein (Negative) Urine Glucose (UA) (Negative) Urine Ketones (Negative) Urine Occult Blood (Negative) Urine Nitrite (Negative) Urine Bilirubin (Negative) Urine Urobilinogen (0.2-1.0) Ur Leukocyte Esterase (Negative) U Hyaline Cast (Auto) (0-5) /lpf Urine RBC (0-5) /hpf Urine WBC (0-5) /hpf Ur Squamous Epith Cells (0-5) /hpf Urine Bacteria (FEW) /hpf Urine Mucus (FEW) /hpf 09/12/19 09/12/19 09/12/19 Range/Units 03:23 05:00 05:00 WBC 11.08 H (4.23-9.07) K/mm3 RBC 3.89 L (4.63-6.08) M/mm3 Hgb 9.5 L (13.7-17.5) gm/dl Hct 31.5 L (40.1-51.0) % MCV 81.0 (79.0-92.2) fl MCH 24.4 L (25.7-32.2) pg MCHC 30.2 L (32.2-35.5) g/dl RDW Std Deviation 50.8 H (35.1-43.9) fL Plt Count 275 (163-337) K/mm3 MPV 10.1 (9.4-12.3) fl Neut % (Auto) 79.1 H (34.0-67.9) % Lymph % (Auto) 4.8 L (21.8-53.1) % Barry % (Auto) 12.3 H (5.3-12.2) % Eos % (Auto) 2.8 (0.8-7.0) Baso % (Auto) 0.2 (0.1-1.2) % Neut # (Auto) 8.77 H (1.78-5.38) K/mm3 Lymph # (Auto) 0.53 L (1.32-3.57) K/mm3 Barry # (Auto) 1.36 H (0.30-0.82) K/mm3 Eos # (Auto) 0.31 (0.04-0.54) K/mm3 Baso # (Auto) 0.02 (0.01-0.08) K/mm3 Manual Slide Review Abnormal smear Puncture Site ABG pH (7.35-7.45) ABG pCO2 (35.0-45.0) mmHg ABG pO2 (80.0-100.0) mmHg ABG HCO3 (22.0-26.0) meq/L ABG O2 Saturation (96.0-97.0) % ABG Base Excess (-2-2.0) [place] Test A-a Gradient mmHg O2 Delivery Device Oxygen Flow Rate FiO2 (21.00-100.00) % Sodium 142 (136-145) mEq/L Potassium 3.5 (3.5-5.1) mEq/L Chloride 109 H (98-107) mEq/L Carbon Dioxide 19 L (21-32) mEq/L Anion Gap 17.5 H (5-15) BUN 11 (7-18) mg/dL Creatinine 0.8 (0.7-1.3) mg/dL Est Cr Clr Drug Dosing 82.24 mL/min Estimated GFR (MDRD) > 60 (>60) mL/min BUN/Creatinine Ratio 13.8 L (14-18) Glucose 112 (83-115) mg/dL POC Glucose (83-110) mg/dL Lactic Acid (0.4-2.0) mmol/L Calcium 8.1 L (8.5-10.1) mg/dL Magnesium 1.7 L (1.8-2.4) mg/dl Total Bilirubin 0.4 (0.2-1.0) mg/dL AST 13 L (15-37) U/L ALT 13 L (16-63) U/L Alkaline Phosphatase 140 H (46-116) U/L C-Reactive Protein 20.3 H* (<1.0) mg/dL Total Protein 4.9 L (6.4-8.2) g/dl Albumin 1.8 L (3.4-5.0) g/dl Globulin 3.1 gm/dL Albumin/Globulin Ratio 0.6 L (1-2) Urine Color Janel H (Yellow) Urine Appearance Slt cloudy H (Clear) Urine pH 5.5 (5.0-8.0) Ur Specific Elrod > or = 1.030 (1.005-1.030) Urine Protein 1+ H (Negative) Urine Glucose (UA) Negative (Negative) Urine Ketones Negative (Negative) Urine Occult Blood Negative (Negative) Urine Nitrite Negative (Negative) Urine Bilirubin 1+ H (Negative) Urine Urobilinogen 0.2 (0.2-1.0) Ur Leukocyte Esterase Negative (Negative) U Hyaline Cast (Auto) 5-10 H (0-5) /lpf Urine RBC 0-5 (0-5) /hpf Urine WBC 5-10 H (0-5) /hpf Ur Squamous Epith Cells 0-5 (0-5) /hpf Urine Bacteria Few (FEW) /hpf Urine Mucus Few (FEW) /hpf 09/12/19 09/12/19 Range/Units 06:20 08:00 WBC (4.23-9.07) K/mm3 RBC (4.63-6.08) M/mm3 Hgb (13.7-17.5) gm/dl Hct (40.1-51.0) % MCV (79.0-92.2) fl MCH (25.7-32.2) pg MCHC (32.2-35.5) g/dl RDW Std Deviation (35.1-43.9) fL Plt Count (163-337) K/mm3 MPV (9.4-12.3) fl Neut % (Auto) (34.0-67.9) % Lymph % (Auto) (21.8-53.1) % Barry % (Auto) (5.3-12.2) % Eos % (Auto) (0.8-7.0) Baso % (Auto) (0.1-1.2) % Neut # (Auto) (1.78-5.38) K/mm3 Lymph # (Auto) (1.32-3.57) K/mm3 Barry # (Auto) (0.30-0.82) K/mm3 Eos # (Auto) (0.04-0.54) K/mm3 Baso # (Auto) (0.01-0.08) K/mm3 Manual Slide Review Puncture Site Lt radial ABG pH 7.36 (7.35-7.45) ABG pCO2 31.3 L (35.0-45.0) mmHg ABG pO2 64.0 L (80.0-100.0) mmHg ABG HCO3 17.1 L (22.0-26.0) meq/L ABG O2 Saturation 92.5 L (96.0-97.0) % ABG Base Excess -7.0 L (-2-2.0) [place] Test Positive A-a Gradient 325 mmHg O2 Delivery Device Nasal cannula Oxygen Flow Rate 7.0 FiO2 0.00 L (21.00-100.00) % Sodium (136-145) mEq/L Potassium (3.5-5.1) mEq/L Chloride (98-107) mEq/L Carbon Dioxide (21-32) mEq/L Anion Gap (5-15) BUN (7-18) mg/dL Creatinine (0.7-1.3) mg/dL Est Cr Clr Drug Dosing mL/min Estimated GFR (MDRD) (>60) mL/min BUN/Creatinine Ratio (14-18) Glucose (83-115) mg/dL POC Glucose 110 (83-110) mg/dL Lactic Acid (0.4-2.0) mmol/L Calcium (8.5-10.1) mg/dL Magnesium (1.8-2.4) mg/dl Total Bilirubin (0.2-1.0) mg/dL AST (15-37) U/L ALT (16-63) U/L Alkaline Phosphatase (46-116) U/L C-Reactive Protein (<1.0) mg/dL Total Protein (6.4-8.2) g/dl Albumin (3.4-5.0) g/dl Globulin gm/dL Albumin/Globulin Ratio (1-2) Urine Color (Yellow) Urine Appearance (Clear) Urine pH (5.0-8.0) Ur Specific [place] (1.005-1.030) Urine Protein (Negative) Urine Glucose (UA) (Negative) Urine Ketones (Negative) Urine Occult Blood (Negative) Urine Nitrite (Negative) Urine Bilirubin (Negative) Urine Urobilinogen (0.2-1.0) Ur Leukocyte Esterase (Negative) U Hyaline Cast (Auto) (0-5) /lpf Urine RBC (0-5) /hpf Urine WBC (0-5) /hpf Ur Squamous Epith Cells (0-5) /hpf Urine Bacteria (FEW) /hpf Urine Mucus (FEW) /hpf NOMAN Results - Last 24 hrs: Microbiology 09/11/19 23:34 Gram Stain - Preliminary Sputum - Expectorated 09/09/19 19:29 Aerobic Blood Culture - Preliminary Blood - Venous NO GROWTH AFTER 2 DAYS Anaerobic Blood Culture - Preliminary NO GROWTH AFTER 2 DAYS 09/09/19 19:35 Aerobic Blood Culture - Preliminary Blood - Venous - Lab Draw NO GROWTH AFTER 2 DAYS Anaerobic Blood Culture - Preliminary NO GROWTH AFTER 2 DAYS Med Orders - Current: Current Medications Acetaminophen (Tylenol) 650 mg PO Q4H PRN PRN Reason: Pain (Mild 1-3)/fever Last Admin: 09/12/19 02:39 Dose: 650 mg Acetylcysteine (Mucomyst 20%) 800 mg NEB QIDRT [facility] Last Admin: 09/12/19 10:15 Dose: 800 mg Albuterol/Ipratropium (Duoneb 3.0-0.5 Mg/3 Ml) 3 ml NEB Q4HRRT PRN PRN Reason: Shortness of Breath Last Admin: 09/12/19 10:15 Dose: 3 ml Azithromycin (Zithromax) 250 mg PO Q24H [facility] Last Admin: 09/11/19 20:07 Dose: 250 mg Enoxaparin Sodium (Lovenox) 40 mg SUBCUT DAILY [facility] Last Admin: 09/12/19 08:03 Dose: 40 mg Guaifenesin (Mucinex) 1,200 mg PO BID [facility] Last Admin: 09/12/19 08:04 Dose: 1,200 mg Ceftriaxone Sodium 2 gm/ (Sodium Chloride) 100 mls @ 200 mls/hr IV Q24H [facility] Vancomycin HCl 1 gm/Vancomycin HCl 250 mg/ Sodium Chloride 250 mls @ 166.667 mls/hr IV Q12H [facility] Last Admin: 09/12/19 11:11 Dose: 166.667 mls/hr Sodium Chloride (Normal Saline) 1,000 mls @ 125 mls/hr IV ASDIRECTED [facility] Last Admin: 09/12/19 09:24 Dose: 125 mls/hr Insulin Human Lispro (Humalog) 0 unit SUBCUT QIDACANDBED [facility]; Protocol Last Admin: 09/12/19 11:15 Dose: Not Given Levetiracetam (Keppra) 500 mg PO Q48H [facility] Last Admin: 09/11/19 08:07 Dose: 500 mg Melatonin (Melatonin) 9 mg PO BEDTIME [facility] Last Admin: 09/11/19 20:08 Dose: 9 mg Simvastatin (Zocor) 20 mg PO BEDTIME [facility] Last Admin: 09/11/19 20:06 Dose: 20 mg Sodium Chloride (Saline Flush) 10 ml FLUSH ASDIRECTED PRN PRN Reason: Keep Vein Open Last Admin: 09/09/19 23:35 Dose: 10 ml Vancomycin HCl (Pharmacy To Dose - Vancomycin) 1 dose .XX ASDIRECTED [facility] Discontinued Medications Acetaminophen (Tylenol) 650 mg PO NOW ONE Stop: 09/09/19 20:41 Last Admin: 09/09/19 20:49 Dose: 650 mg Azithromycin (Zithromax) 500 mg PO ONETIME ONE Stop: 09/09/19 20:29 Last Admin: 09/09/19 20:46 Dose: 500 mg Diphenhydramine HCl (Benadryl) 25 mg IVPUSH ONETIME ONE Stop: 09/12/19 03:15 Last Admin: 09/12/19 03:27 Dose: 25 mg Guaifenesin/Codeine Phosphate (Robitussin Ac) 5 ml PO ONETIME ONE Stop: 09/11/19 22:53 Last Admin: 09/11/19 23:10 Dose: 5 ml Guaifenesin/Codeine Phosphate (Robitussin Ac) 5 ml PO ONETIME ONE Stop: 09/12/19 02:42 Last Admin: 09/12/19 02:48 Dose: 5 ml Sodium Chloride (Normal Saline) 1,000 mls @ 100 mls/hr IV ONETIME ONE Stop: 09/10/19 03:25 Last Admin: 09/09/19 23:14 Dose: 100 mls/hr Ceftriaxone Sodium 2 gm/ (Sodium Chloride) 100 mls @ 200 mls/hr IV ONETIME ONE Stop: 09/09/19 20:56 Last Admin: 09/09/19 20:47 Dose: 200 mls/hr Sodium Chloride (Normal Saline) 1,000 mls @ 999 mls/hr IV ONETIME ONE Stop: 09/09/19 21:45 Last Admin: 09/09/19 20:51 Dose: 100 mls/hr Ceftriaxone Sodium 1 gm/ (Sodium Chloride) 100 mls @ 200 mls/hr IV Q24H [facility] Stop: 09/11/19 23:59 Last Admin: 09/11/19 20:06 Dose: 200 mls/hr Magnesium Sulfate 2 gm/ Premix 50 mls @ 25 mls/hr IV ONETIME ONE Stop: 09/10/19 10:26 Last Admin: 09/10/19 09:17 Dose: 25 mls/hr Sodium Chloride (Normal Saline) 1,000 mls @ 75 mls/hr IV ASDIRECTED [facility] Sodium Chloride (Normal Saline) 1,000 mls @ 75 mls/hr IV ONETIME ONE Stop: 09/11/19 23:19 Last Infusion: 09/11/19 21:53 Dose: Infused Sodium Chloride (Normal Saline) Confirm Administered Dose 500 mls @ as directed .ROUTE .STK-MED ONE Stop: 09/11/19 21:11 Last Admin: 09/11/19 21:15 Dose: Not Given Sodium Chloride (Normal Saline) 500 mls @ 999 mls/hr IV ONETIME ONE Stop: 09/11/19 21:44 Last Admin: 09/11/19 21:14 Dose: 999 mls/hr Ceftriaxone Sodium 1 gm/ (Sodium Chloride) 100 mls @ 200 mls/hr IV ONETIME ONE Stop: 09/11/19 21:49 Last Admin: 09/11/19 21:38 Dose: 200 mls/hr Sodium Chloride (Normal Saline) 500 mls @ 999 mls/hr IV .BOLUS ONE Stop: 09/12/19 08:08 Last Admin: 09/12/19 07:32 Dose: 999 mls/hr Magnesium Sulfate 2 gm/ Premix 50 mls @ 25 mls/hr IV ONETIME ONE Stop: 09/12/19 10:43 Last Admin: 09/12/19 08:50 Dose: 25 mls/hr Iopamidol (Isovue-300 (61%)) 100 ml IVPUSH ONETIME ONE Stop: 09/09/19 19:28 Last Admin: 09/09/19 19:44 Dose: 100 ml Melatonin (Melatonin) 6 mg PO BEDTIME [facility] Last Admin: 09/10/19 20:56 Dose: 6 mg Trazodone HCl (Trazodone) 50 mg PO ONETIME ONE Stop: 09/11/19 22:54 Last Admin: 09/11/19 23:10 Dose: 50 mg - Exam Quality Assessment: Reports: Supplemental Oxygen General: Reports: Alert, Oriented HEENT: Reports: Pupils Equal, Pupils Reactive, EOMI, Mucous Membr. Moist/[place] Neck: Reports: Supple Lungs: Reports: Decreased Breath Sounds (Right lower middle lobe). Denies: Normal Respiratory Effort ( Tachypnea and use of accessory muscles.) Cardiovascular: Reports: Regular Rhythm, Tachycardia GI/Abdominal Exam: Normal Bowel Sounds, Soft, Non-Tender, No Organomegaly, No Distention, No Abnormal Bruit, No Mass Skin: Reports: Warm, Dry, Intact Psy/Mental Status: Reports: Alert, Normal Affect, Normal Mood
[2019-09-12] MEDS ORDERED: cefTRIAXone 2 GM in Sodium Chloride 0.9% 100 ML IV SCH (22:30)
== END 2019-09-12 13:08 | DRG 871 ==
LOC: JD.ED 16:49 → JD.MS 20:44 → JD.ICU 09-11 19:28
PROVIDERS: ADMIT Family Medicine; ATTEND Family Medicine
DX: A41.9 Sepsis, unspecified organism (principal); E78.00 Pure hypercholesterolemia, unspecified; J18.9 Pneumonia, unspecified organism; J90 Pleural effusion, not elsewhere classified; E11.9 Type 2 diabetes mellitus without complications; Z85.841 Personal history of malignant neoplasm of brain; C81.90 Hodgkin lymphoma, unspecified, unspecified site; Z98.49 Cataract extraction status, unspecified eye; C85.90 Non-Hodgkin lymphoma, unspecified, unspecified site; Z79.84 Long term (current) use of oral hypoglycemic drugs; G40.909 Epilepsy, unspecified, not intractable, without status epilepticus; E78.5 Hyperlipidemia, unspecified; R73.03 Prediabetes; K21.9 Gastro-esophageal reflux disease without esophagitis; M19.90 Unspecified osteoarthritis, unspecified site; G93.89 Other specified disorders of brain; Z79.899 Other long term (current) drug therapy; Z87.891 Personal history of nicotine dependence
CPT/HCPCS: 36415; 71046; 71260; 80053; 83605; 83735; 83880; 84484; 85007; 85027; 85610; 85730; 86140; 87040 ×2; 93005; J7030; Q9967; 36600; 71045; 71045-26; 81001; 82803; 82962; 83036; 85025; 87070; 87106; 87205; 93010; 94640; 94667; 94668; 94761; 99223; 99232; 99239; 99284; 99285-25; A9270-GY; J0696; J1200; J1650; J1815-GY; J3370; J3475; J7050; J7620-GY